=== PATIENT | female | born 1935 | race Caucasian/White ===

== ENCOUNTER → 2017-07-21 | Outpatient (CLI) | payer MEDICARE, MEDICAID ==
--- NOTE | 2017-07-21 11:38 | WOMENS IMAGING REPORT ---
Danny EXAM DESCRIPTION: BILAT SCREENING MAMMO W/CAD COMPLETED DATE/TIME: 07/21/2017 10:49 am REASON FOR STUDY: ROUTINE SCREENING; Z12.31 Z12.31 ENCNTR SCREEN MAMMOGRAM FOR MALIGNANT NEOPLASM O F ENDY COMPARISON: 2008 to 2015 TECHNIQUE: Standard craniocaudal and mediolateral oblique views of each breast recorded using App[employer] l acquisition. LIMITATIONS: None. FINDINGS: No masses, calcifications or architectural distortion. No areas of suspicion. Read with the assistance of CAD. .[facility] - R2 Cenova Version 1.3 .[facility] - R2 Cenova Version 1.3 .[facility] - R2 Cenova Version 2.4 .[facility] - R2 Cenova Version 2.4 .[facility] - R2 Legal Financial Specialist Version 9.2 IMPRESSION: NORMAL MAMMOGRAM. BIRADS 1. BREAST DENSITY: c. The breasts are heterogeneously dense, which may obscure small masses. BIRAD: 1 NEGATIVE RECOMMENDATION: ROUTINE SCREENING COMMENT: The patient has been notified of the results by letter per SA requirements. Additional no tification policies are in place for contacting patient with suspicious or incomplete findings. Quality ID #225: The [employer] recommends an annual screening mammogram for women aged 40 years or over. This facility utilizes a reminder system to ensure that all patients receive reminder letters, and/or direct phone calls for appointments. This includes reminders for routine scr eening mammograms, diagnostic mammograms, or other Breast Imaging Interventions when appropriate. Th is patient will be placed in the appropriate reminder system. The [employer] (ACR) has developed recommendations for screening MRI of the breast s in certain patient populations, to be used in conjunction with mammography. Breast MRI surveillanc e may be appropriate for women with more than 20% lifetime risk of developing breast cancer as deter mined by genetic testing, significant family history of the disease, or history of mantle radiation f or Hodgkins Disease. ACR Practice Guidelines 2008. TECHNICAL DOCUMENTATION: FINDING NUMBER: (1) ASSESSMENT: (1) JOB ID: [id number] [employer]- All Rights Reserved
== END ==
LOC: WI 10:27
PROVIDERS: ATTEND Physician Assistant
DX: Z12.31 Encounter for screening mammogram for malignant neoplasm of breast (principal)
CPT/HCPCS: 77067; G0202

== ENCOUNTER 2017-08-22 14:07 | Emergency (ER) | payer MEDICARE, MEDICAID ==
[2017-08-22 19:12] LABS: ABSOLUTE BASOPHILS # (AUTO) 0.1 10^3/uL (0.0-0.2); ABSOLUTE EOSINOPHILS # (AUTO) 0.2 10^3/uL (0.0-0.6); ABSOLUTE LYMPHOCYTES (AUTO) 1.7 10^3/uL (0.5-4.7); ABSOLUTE MONOCYTES (AUTO) 0.5 10^3/uL (0.1-1.4); ABSOLUTE NEUT (AUTO) 4.7 10^3/uL (1.7-8.2); BASOPHILS % (AUTO) 0.8 % (0-2); EOSINOPHILS % (AUTO) 2.5 % (0-6); HEMATOCRIT 41.5 % (36.0-47.0); HEMOGLOBIN 14.2 g/dL (12.0-15.5); HGB HCT DIFFERENCE 1.1; LYMPHOCYTES % (AUTO) 24.1 % (13-45); MEAN CORPUSCULAR HEMOGLOBIN 30.6 pg (27.0-33.4); MEAN CORPUSCULAR HGB CONC 34.2 g/dL (32.0-36.0); MEAN CORPUSCULAR VOLUME 89 fl (80-97); MONOCYTES % (AUTO) 6.9 % (3-13); RED BLOOD COUNT 4.65 10^6/uL (3.72-5.28); RED CELL DISTRIBUTION WIDTH 13.2 % (11.5-14.0); SEGMENTED NEUTROPHILS % (AUTO) 65.7 % (42-78); WHITE BLOOD COUNT 7.1 10^3/uL (4.0-10.5)
[2017-08-22 19:33] LABS: ALANINE AMINOTRANSFERASE 33 U/L (9-52); ALBUMIN 4.6 g/dL (3.5-5.0); ALKALINE PHOSPHATASE 51 U/L (38-126); ANION GAP 14 (5-19); ASPARTATE AMINO TRANSFERASE 25 U/L (14-36); BILIRUBIN,DIRECT 0.4 mg/dL (0.0-0.4); BILIRUBIN,TOTAL 0.7 mg/dL (0.2-1.3); BLOOD UREA NITROGEN 30 mg/dL (7-20); CALCIUM 10.5 mg/dL (8.4-10.2); CARBON DIOXIDE 27 mmol/L (22-30); CHLORIDE 103 mmol/L (98-107); CREATININE RESULT 0.91 mg/dL (0.52-1.25); GLUCOSE 88 mg/dL (75-110); POTASSIUM 4.1 mmol/L (3.6-5.0); SODIUM 144.3 mmol/L (137-145); TOTAL PROTEIN 7.7 g/dL (6.3-8.2)
--- NOTE | 2017-08-22 19:43 | ER Document Report ---
ED Medical Screen (RME) - General Mode of Arrival: Ambulatory Information source: Patient TRAVEL OUTSIDE OF THE [place] IN LAST 30 DAYS: No <CRISTEL MESSINA - Last Filed: 08/22/17 19:43> <CHERY CHRISTENSEN - Last Filed: 08/22/17 21:10> - General Chief Complaint: Dizziness Stated Complaint: DIZZINESS,NECK PAIN Time Seen by Provider: 08/22/17 18:03 Notes: Patient reports 2 days of dizziness and lightheadedness with near syncopal episodes. Patient states "everything goes black" but she does not believe she has fully passed out. Patient states this usually happens when going from sitting to standing. (CRISTEL MESSINA) - Related Data Allergies/Adverse Reactions: No Known Allergies Allergy (Verified 08/22/17 15:02) Past Medical History - General Information source: [facility] Records - Social History Chew tobacco use (# tins/day): No Frequency of alcohol use: None Drug Abuse: None - Past Medical History Cardiac Medical History: Reports: Hx Hypercholesterolemia, Hx Hypertension Renal/ Medical History: Denies: Hx Peritoneal Dialysis Surgical Hx: Negative - Immunizations Hx Diphtheria, Pertussis, Tetanus Vaccination: Yes History of Influenza Vaccine for 08/2017 - 01/2018 Season: No <CRISTEL MESSINA - Last Filed: 08/22/17 19:43> Review of Systems - Review of Systems Cardiovascular: See HPI, Dizziness <CRISTEL MESSINA - Last Filed: 08/22/17 19:43> Physical Exam <CRISTEL MESSINA - Last Filed: 08/22/17 19:43> <CHERY CHRISTENSEN - Last Filed: 08/22/17 21:10> - Vital signs Vitals: Temp Pulse Resp BP Pulse Ox 97.6 F 50 L 16 135/51 H 98 08/22/17 15:00 08/22/17 15:00 08/22/17 15:00 08/22/17 15:00 08/22/17 15:00 - Notes Notes: Physical Exam: General: Alert, appears well. HEENT: Normocephalic. Atraumatic. PERRLA. Extraocular movements intact. Oropharynx clear. Neck: Supple. Respiratory: No respiratory distress. Abdominal: Normal Inspection. No distension. Extremities: Moves all four extremities. Neurological: Normal cognition. AAOx4. Normal speech. Psychological: Normal affect. Normal Mood. Skin: Warm. Dry. Normal color. (CRISTEL MESSINA) Course - Laboratory Result Diagrams: 08/22/17 18:49 08/22/17 18:49 <CRISTEL MESSINA - Last Filed: 08/22/17 19:43> - Laboratory Result Diagrams: 08/22/17 18:49 08/22/17 18:49 <CHERY CHRISTENSEN - Last Filed: 08/22/17 21:10> - Re-evaluation Re-evalutation: 08/22/17 21:10 I have greeted this patient and performed a rapid initial assessment. A comprehensive evaluation will be performed by another physician within the emergency department, including review of any tests I may have ordered. ( CHERY CHRISTENSEN) - Vital Signs Vital signs: Temp Pulse Resp BP Pulse Ox 98.2 F 63 16 173/68 H 98 08/22/17 18:16 08/22/17 18:16 08/22/17 18:16 08/22/17 18:16 08/22/17 18:16 - Laboratory Laboratory results interpreted by me: 08/22/17 18:49 BUN 30 H Est GFR (Non-Af Amer) 59 L Calcium 10.5 H Scribe Documentation - Scribe Written by Mehdi:: Mehdi Urrutia, 08/22/2017 194 acting as scribe for :: Loretta <CRISTEL MESSINA - Last Filed: 08/22/17 19:43>
[2017-08-22 19:46] LABS: APPEARANCE,URINE SLIGHTLY-CLOUDY; BILIRUBIN,URINE NEGATIVE (NEGATIVE); GLUCOSE, URINE NEGATIVE (NEGATIVE); KETONES,URINE NEGATIVE (NEGATIVE); LEUKOCYTE ESTERASE,URINE NEGATIVE (NEGATIVE); NITRITE,URINE NEGATIVE (NEGATIVE); PROTEIN,URINE NEGATIVE (NEGATIVE); URINE SPECIFIC GRAVITY 1.013; UROBILINOGEN,URINE NEGATIVE mg/dL (<2.0)
--- NOTE | 2017-08-22 21:43 | ER Document Report ---
ED General - General Chief Complaint: Dizziness Stated Complaint: DIZZINESS,NECK PAIN Time Seen by Provider: 08/22/17 18:03 Mode of Arrival: Ambulatory Notes: Patient is an 82-year-old female who presents with episodic lightheadedness that has been ongoing for the past 2 days. Patient states that today shortly after she woke up at that time the couch began to feel lightheaded like she was about to pass out. Symptoms lasted for approximately 10-20 minutes and then did spontaneously resolve. Nothing seemed to trigger the episode and they did resolve on their own. She denies any associated chest pain, shortness of breath , palpitations, nausea, vomiting, focal weakness or numbness, headache, neck pain or confusion. She has not had any recent falls or trauma. She states that she has had similar symptoms throughout the day yesterday and wanted to be evaluated. She has not seen her primary care doctor regarding today's concerns. She has no history of similar symptoms in the past. She denies any symptoms at the time of my assessment. TRAVEL OUTSIDE OF THE [place] IN LAST 30 DAYS: No - Related Data Allergies/Adverse Reactions: No Known Allergies Allergy (Verified 08/22/17 15:02) Past Medical History - General Information source: Patient, [facility] Records - Social History Smoking Status: Never Smoker Chew tobacco use (# tins/day): No Frequency of alcohol use: None Drug Abuse: None Lives with: Family Family History: Reviewed & Not Pertinent Patient has suicidal ideation: No Patient has homicidal ideation: No - Past Medical History Cardiac Medical History: Reports: Hx Hypercholesterolemia, Hx Hypertension Renal/ Medical History: Denies: Hx Peritoneal Dialysis Surgical Hx: Negative - Immunizations Hx Diphtheria, Pertussis, Tetanus Vaccination: Yes Review of Systems - Review of Systems Notes: Constitutional: Negative for fever. HENT: Negative for sore throat. Eyes: Negative for visual changes. Cardiovascular: Negative for chest pain. Respiratory: Negative for shortness of breath. Gastrointestinal: Negative for abdominal pain, vomiting or diarrhea. Genitourinary: Negative for dysuria. Musculoskeletal: Negative for back pain. Skin: Negative for rash. Neurological: Negative for headaches, weakness or numbness. 10 point ROS negative except as marked above and in HPI. Physical Exam - Vital signs Vitals: Temp Pulse Resp BP Pulse Ox 97.6 F 50 L 16 135/51 H 98 08/22/17 15:00 08/22/17 15:00 08/22/17 15:00 08/22/17 15:00 08/22/17 15:00 Interpretation: Bradycardic Notes: PHYSICAL EXAMINATION: GENERAL: Well-appearing, well-nourished and in no acute distress. HEAD: Atraumatic, normocephalic. EYES: Pupils equal round and reactive to light, extraocular movements intact, sclera anicteric, conjunctiva are normal. ENT: nares patent, oropharynx clear without exudates. Moist mucous membranes. NECK: Normal range of motion, supple without lymphadenopathy LUNGS: Breath sounds clear to auscultation bilaterally and equal. No wheezes rales or rhonchi. HEART: Regular rate and rhythm without murmurs ABDOMEN: Soft, nontender, normoactive bowel sounds. No guarding, no rebound. No masses appreciated. EXTREMITIES: Normal range of motion, no pitting or edema. No cyanosis. NEUROLOGICAL: Face symmetric. Tongue protrudes midline. Extraocular motions intact. Pupils are 2 mm and equally reactive. Normal speech, normal gait. 5 out of 5 strength in both the distal and proximal upper and lower extremities bilaterally. Sensation is grossly intact throughout. Finger to nose testing normal. Pronator drift normal. PSYCH: Normal mood, normal affect. SKIN: Warm, Dry, normal turgor, no rashes or lesions noted. Course - Re-evaluation Re-evalutation: 08/22/17 21:42 Presentation of lightheadedness/ near syncope of unclear etiology. Patient normotensive, alert, without focal neurologic deficits at time of arrival. Denies episode was during exertion. No preceding symptoms of palpitations, chest pain, or shortness of breath. Patient asymptomatic at time of arrival. EKG is without evidence of HCOM, right heart strain, ST changes to suggest ischemia, prolong QTc, delta wave, epsilon wave, or Brugada syndrome. Patient denies any family history of sudden cardiac , personal history of of structural heart disease. Patient denies any symptoms to suggest an acute PE, VA , TAD, SAH, seizure, or acute GI bleed as the etiology of their syncope today. On exam, no murmurs to suggest critical aortic stenosis as possible etiology. Labs all unremarkable. Based on overall clinical history, exam findings, vitals , and patients appearance, I feel it is safe for patient to be discharged home at this time with close outpatient follow-up and strict return precautions. Patient is in agreement with this plan, has verbalized indications for return to ED, and questions have been answered. - Vital Signs Vital signs: Temp Pulse Resp BP Pulse Ox 98.1 F 63 17 130/62 H 99 08/22/17 22:03 08/22/17 22:03 08/22/17 22:03 08/22/17 22:03 08/22/17 22:03 - Laboratory Result Diagrams: 08/22/17 18:49 08/22/17 18:49 Laboratory results interpreted by me: 08/22/17 18:49 BUN 30 H Est GFR (Non-Af Amer) 59 L Calcium 10.5 H - EKG Interpretation by Me Additional EKG results interpreted by me: 08/22/17 21:44 Sinus bradycardia. Rate 51. No ST elevations or depressions. QTC is 429. No prior for comparison Discharge - Discharge Clinical Impression: Near syncope, Lightheadedness Condition: Good Disposition: HOME, SELF-CARE Additional Instructions: You were seen today after an episode of almost passing out. Your EKG here is normal. At this time, we do not feel that your episode of lightheadedness was from any life-threatening cause. Please drink plenty of fluids over the next several days. Return to emergency department if you have any further episodes of syncope, headache, weakness, numbness, chest pain, or shortness of breath. Please follow up closely with your primary care physician and cardiology at your earliest ability for consideration of an echocardiogram and monitoring of your heart rate. Referrals: DASH PIÑA MD [ACTIVE STAFF] - Follow up in 3-5 days
[2017-08-22 22:04] VITALS: BP 130/62
--- NOTE | 2017-08-23 07:50 | EKG REPORT ---
SEVERITY:- ABNORMAL ECG - SINUS RHYTHM LEFT ANTERIOR FASCICULAR BLOCK : Confirmed by: Chriss Pizano MD 23-Aug-2017 07:49:00
== END 2017-08-22 22:02 | disposition home or self-care (01) ==
LOC: ER 14:07
DX: R42 Dizziness and giddiness (principal); M54.2 Cervicalgia; R55 Syncope and collapse; E78.00 Pure hypercholesterolemia, unspecified; I10 Essential (primary) hypertension
CPT/HCPCS: 36415; 80053; 81001; 84484; 85025; 93005; 93010; 99284

== ENCOUNTER → 2018-08-27 | Outpatient (CLI) | payer MEDICARE, MEDICAID ==
--- NOTE | 2018-08-27 10:44 | WOMENS IMAGING REPORT ---
EXAM DESCRIPTION: BILAT SCREENING MAMMO W/CAD COMPLETED DATE/TIME: 08/27/2018 10:15 am REASON FOR STUDY: ROUTINE BILATERAL SCREENING;Z12.31 Z12.31 ENCNTR SCREEN MAMMOGRAM FOR MALIGNANT N EOPLASM OF ENDY COMPARISON: [id number] TECHNIQUE: Standard craniocaudal and mediolateral oblique views of each breast recorded using Project 10Ka l acquisition. LIMITATIONS: None. FINDINGS: No masses, calcifications or architectural distortion. No areas of suspicion. Read with the assistance of CAD. .[facility] - R2 Cenova Version 1.3 .[facility] Imaging - R2 Cenova Version 1.3 .[facility] - R2 Cenova Version 2.4 .[facility] [place] R2 Cenova Version 2.4 .[facility] - R2 Tread Tuber Machine Operator Version 9.2 IMPRESSION: NORMAL MAMMOGRAM. BIRADS 1. BREAST DENSITY: c. The breasts are heterogeneously dense, which may obscure small masses. BIRAD: 1 NEGATIVE RECOMMENDATION: ROUTINE SCREENING COMMENT: The patient has been notified of the results by letter per SA requirements. Additional no tification policies are in place for contacting patient with suspicious or incomplete findings. Quality ID #225: The [employer] recommends an annual screening mammogram for women aged 40 years or over. This facility utilizes a reminder system to ensure that all patients receive reminder letters, and/or direct phone calls for appointments. This includes reminders for routine scr eening mammograms, diagnostic mammograms, or other Breast Imaging Interventions when appropriate. Th is patient will be placed in the appropriate reminder system. The [employer] (ACR) has developed recommendations for screening MRI of the breast s in certain patient populations, to be used in conjunction with mammography. Breast MRI surveillanc e may be appropriate for women with more than 20% lifetime risk of developing breast cancer as deter mined by genetic testing, significant family history of the disease, or history of mantle radiation f or Hodgkins Disease. ACR Practice Guidelines 2008. TECHNICAL DOCUMENTATION: FINDING NUMBER: (1) ASSESSMENT: (1) JOB ID: [id number] [employer]- All Rights Reserved Reading location - IP/workstation name: [facility]
== END ==
LOC: WI 09:50
PROVIDERS: ATTEND Registered Nurse
DX: Z12.31 Encounter for screening mammogram for malignant neoplasm of breast (principal)
CPT/HCPCS: 77067

== ENCOUNTER → 2018-09-25 | Outpatient (CLI) | payer MEDICARE, MEDICAID ==
--- NOTE | 2018-09-25 12:39 | RADIOLOGY REPORT (SQ) ---
EXAM DESCRIPTION: [facility] DUPLEX ART/ANGELO FLOW COMPLETED DATE/TIME: 09/25/2018 11:47 am REASON FOR STUDY: HTN (I10) I10 ESSENTIAL (PRIMARY) HYPERTENSION COMPARISON: None. TECHNIQUE: Realtime and static grayscale images acquired. Selected color Doppler, velocities and spe ctral images recorded. LIMITATIONS: Renal artery origins off the aorta were difficult to visualize today FINDINGS: RIGHT KIDNEY: RENAL ARTERY VELOCITIES: At the hilum, 76 cm/sec. Segmental artery velocity 54 cm/sec. RENAL VEIN: Color doppler flow present, patent. VELOCITY RATIO: 1.1. Normal waveforms. KIDNEY: Normal size, 9 cm in length 1 cm cyst right upper pole kidney. LEFT KIDNEY: RENAL ARTERY VELOCITIES: At the hilum, 63 cm/sec. Segmental artery velocity 59 cm/sec. RENAL VEIN: Color doppler flow present, patent. VELOCITY RATIO: 1.1. Normal waveforms. KIDNEY: Normal size, 9.8 cm in length No significant pathology. BLADDER: Decompressed, not well seen OTHER: No other significant finding. IMPRESSION: NO DOPPLER EVIDENCE OF HEMODYNAMICALLY SIGNIFICANT RENAL ARTERY STENOSIS. COMMENT: NORMAL RENAL ARTERY/AORTA VELOCITY RATIO IS LESS THAN OR EQUAL TO 3.5. TECHNICAL DOCUMENTATION: JOB ID: [id number] [employer]- All Rights Reserved Reading location - IP/workstation name: [facility]
== END ==
LOC: RAD 09:31
PROVIDERS: ATTEND Registered Nurse
DX: I10 Essential (primary) hypertension (principal)
CPT/HCPCS: 93976

== ENCOUNTER 2018-11-08 02:17 | Inpatient (IN) | payer MEDICARE, MEDICAID ==
--- NOTE | 2018-11-08 03:03 | ER Document Report ---
ED General - General Chief Complaint: Blood Pressure Problem Stated Complaint: BLOOD PRESSURE ISSUE Time Seen by Provider: 11/08/18 02:48 TRAVEL OUTSIDE OF THE [place].S. IN LAST 30 DAYS: No - HPI Notes: Patient is a 83-year-old female that presents to the emergency department for chief complaint of hypertension. Patient states that over the last few weeks she has had a few episodes where her blood pressure gets very high. Today she woke up from sleep to go to the restroom and shortly after lying down she started to have palpitations. Her daughter states that her face appeared very red and she was shaking. Patient symptoms lasted for 30-40 minutes and then completely resolved. EMS was called to the house during this episode and her blood pressure was 198/96 as reported by her daughter. Patient currently states she is asymptomatic and feels back to normal. Her blood pressure now is stable. She does take 3 medications at home for blood pressure and has been compliant with these. Patient's daughter states that she was seen a week ago with similar symptoms at [place] and was discharged home without workup. Patient denies any associated diaphoresis, chest pain, shortness of breath, nausea, vomiting, abdominal pain. She states she is currently on antibiotic for urinary tract infection, she states her dysuria has almost completely resolved. She denies any fevers. Past Medical History: Hypertension Past Surgical History: Reviewed in chart Social History: Denies drugs alcohol and tobacco Family History: Reviewed and noncontributory for presenting illness Allergies: Reviewed, see documented allergy list. REVIEW OF SYSTEMS: CONSTITUTIONAL : No fever No chills No diaphoresis No recent illness EENT: No vision changes No congestion No sore throat CARDIOVASCULAR: No chest pain palpitations RESPIRATORY: No shortness of breath No cough No difficulty breathing GASTROINTESTINAL: No abdominal pain No nausea No vomiting No diarrhea GENITOURINARY: dysuria No hematuria No difficulty urinating MUSCULOSKELETAL: No back pain No leg pain No arm pain SKIN: No rashes No lesions LYMPHATIC: No swollen, enlarged glands. NEUROLOGICAL: No lightheadedness No headache No weakness No paresthesias Shakiness PSYCHIATRIC: No anxiety No depression PHYSICAL EXAMINATION: Vital signs reviewed, nursing noted reviewed. GENERAL: Well-appearing, well-nourished and in no acute distress. HEAD: Atraumatic, normocephalic. EYES: Eyes appear normal, extraocular movements intact, sclera anicteric, conjunctiva are normal. ENT: nares patent, oropharynx clear without exudates. Moist mucous membranes. NECK: Normal range of motion, supple without lymphadenopathy LUNGS: Breath sounds clear to auscultation bilaterally and equal. No wheezes r ales or rhonchi. HEART: Regular rate and rhythm without murmurs ABDOMEN: Soft, nontender, normoactive bowel sounds. No rebound, guarding, or rigidity. No masses appreciated. EXTREMITIES: Nontender, good range of motion, no pitting or edema. NEUROLOGICAL: No focal neurological deficits. Moves all extremities spontaneously Motor and sensory grossly intact on exam. PSYCH: Normal mood, normal affect. SKIN: Warm, Dry, normal turgor, no rashes or lesions noted on exposed skin - Related Data Allergies/Adverse Reactions: No Known Allergies Allergy (Verified 08/22/17 15:02) Past Medical History - Social History Smoking Status: Never Smoker Family History: Reviewed & Not Pertinent - Past Medical History Cardiac Medical History: Reports: Hx Hypercholesterolemia, Hx Hypertension Renal/ Medical History: Denies: Hx Peritoneal Dialysis - Immunizations Hx Diphtheria, Pertussis, Tetanus Vaccination: Yes Physical Exam - Vital signs Vitals: Temp Pulse Resp BP Pulse Ox 98.1 F 90 16 152/80 H 97 11/08/18 02:31 11/08/18 02:31 11/08/18 02:31 11/08/18 02:31 11/08/18 02:31 Course - Re-evaluation Re-evalutation: 11/08/18 03:02 Vitals reviewed. Nursing notes reviewed. Patient is resting comfortably and asymptomatic. Her blood pressure is 152/80 and she is not requiring blood pressure medication. Patient has now had multiple visits to the emergency room with complaints of hypertension. She does see Dr. Bradford who expressed displeasure when patient's daughter told her she did not receive a workup the last time she was in the ER. 11/08/18 04:58 Patient's EKG shows no acute ischemic changes. CBC is unremarkable. She has no renal failure or electrolyte derangements. Patient does have a slightly elevated troponin at 0.037. The symptoms she was having earlier in the evening may be atypical ACS. She has not had any symptoms while in the emergency room. Patient was given aspirin and will be admitted to the hospital for telemetry monitoring as well as trending of her troponins. Case discussed with admitting physician Dr. Terrazas. She is stable at time of admission. Laboratory 11/08/18 11/08/18 11/08/18 04:08 04:08 04:08 WBC 8.0 RBC 4.60 Hgb 13.7 Hct 40.0 MCV 87 MCH 29.9 MCHC 34.4 RDW 14.0 Plt Count 273 Seg Neutrophils % 79.8 H Lymphocytes % 11.6 L Monocytes % 5.8 Eosinophils % 2.3 Basophils % 0.5 Absolute Neutrophils 6.4 Absolute Lymphocytes 0.9 Absolute Monocytes 0.5 Absolute Eosinophils 0.2 Absolute Basophils 0.0 Sodium 142.2 Potassium 3.8 Chloride 104 Carbon Dioxide 28 Anion Gap 10 BUN 14 Creatinine 0.77 Est GFR ( Amer) > 60 Est GFR (Non-Af Amer) > 60 Glucose 107 Calcium 10.0 Troponin I 0.037 - Vital Signs Vital signs: Temp Pulse Resp BP Pulse Ox 98.1 F 90 16 152/80 H 97 11/08/18 02:31 11/08/18 02:31 11/08/18 02:31 11/08/18 02:31 11/08/18 02:31 - Laboratory Result Diagrams: 11/08/18 04:08 11/08/18 04:08 Laboratory results interpreted by me: 11/08/18 04:08 Seg Neutrophils % 79.8 H Lymphocytes % 11.6 L - EKG Interpretation by Me Additional EKG results interpreted by me: 11/08/18 03:35 Interpreted by myself Normal sinus rhythm, rate 94, borderline left axis, no ectopy, no ST elevation, LAFB Discharge - Discharge Clinical Impression: Elevated troponin Hypertension Qualifiers: Hypertension type: unspecified Qualified Code(s): I10 - Essential (primary) hypertension Condition: Stable Disposition: ADMITTED OBSERVATION Admitting Provider: Hospitalist Unit Admitted: Telemetry Additional Instructions: Please return to the emergency department if you have any worsening, or concern of your symptoms. Please return to the emergency department if you develop chest pain, difficulty breathing, severe abdominal pain, or ongoing vomiting. Please follow-up with your primary care physician in 2-3 days and any other recommended physicians. If prescribed, take all medications as directed. If you have any questions or concerns do not hesitate to return the emergency department for evaluation.
[2018-11-08 04:34] LABS: ANION GAP 10 (5-19); BLOOD UREA NITROGEN 14 mg/dL (7-20); CARBON DIOXIDE 28 mmol/L (22-30); CHLORIDE 104 mmol/L (98-107); GLUCOSE 107 mg/dL (75-110); POTASSIUM 3.8 mmol/L (3.6-5.0); SODIUM 142.2 mmol/L (137-145)
[2018-11-08 04:37] LABS: ABSOLUTE EOSINOPHILS # (AUTO) 0.2 10^3/uL (0.0-0.6); ABSOLUTE LYMPHOCYTES (AUTO) 0.9 10^3/uL (0.5-4.7); ABSOLUTE MONOCYTES (AUTO) 0.5 10^3/uL (0.1-1.4); ABSOLUTE NEUT (AUTO) 6.4 10^3/uL (1.7-8.2); BASOPHILS % (AUTO) 0.5 % (0-2); EOSINOPHILS % (AUTO) 2.3 % (0-6); HEMOGLOBIN 13.7 g/dL (12.0-15.5); LYMPHOCYTES % (AUTO) 11.6 % (13-45); MEAN CORPUSCULAR HEMOGLOBIN 29.9 pg (27.0-33.4); MEAN CORPUSCULAR HGB CONC 34.4 g/dL (32.0-36.0); MEAN CORPUSCULAR VOLUME 87 fl (80-97); MONOCYTES % (AUTO) 5.8 % (3-13); PLATELET COUNT 273 10^3/uL (150-450); SEGMENTED NEUTROPHILS % (AUTO) 79.8 % (42-78); TOTAL CELLS COUNTED % (AUTO) 100 %
[2018-11-08] MEDS ORDERED: ASPIRIN 81 MG TABLET, CHEWABLE PO ONE (04:50)
[2018-11-08] MEDS ORDERED: MAG HYDROX/AL HYDROX/SIMETH SUSP 30 ML UDCUP PO PRN (05:04)
[2018-11-08] MEDS ORDERED: ONDANSETRON 4 MG TAB.RAPDIS PO PRN (05:04)
[2018-11-08] MEDS ORDERED: MAGNESIUM HYDROXIDE SUSP 30 ML UDCUP PO PRN (05:04)
[2018-11-08] MEDS ORDERED: ACETAMINOPHEN 650 MG SUPP.RECT PR PRN (05:08)
[2018-11-08] MEDS ORDERED: MORPHINE SULFATE 10 MG/ML INJ IV PRN ×3 (05:08)
[2018-11-08] MEDS: HEPARIN SOD (PORCINE) 5,000 UNIT/ML 1 ML SYRINGE SUBCUT SCH ×3 (05:23→21:20)
--- NOTE | 2018-11-08 05:39 | PDOC H&P ---
History of Present Illness Admission Date/PCP: KAILEY NIEVES NP Patient complains of: High blood pressure History of Present Illness: TREVOR NIEVES is a 83 year old female who presented to the emergency room with a 3-week history of episodic hypertension. She admits that on numerous occasions over the last 3 weeks her blood pressure has become extremely high (198/96) at home when she measures it or when her daughter measures it. The elevated blood pressures are generally accompanied by palpitations, flushing and tremor, lasting for 30-60 minutes and then resolving spontaneously. She admits several prior similar episodes and has not identified any aggravating or ameliorating factors for her hypertension, despite the fact that she takes 3 an tihypertensive agents on a regular basis. In the emergency room she was found to have a mildly elevated serum troponin of 0.037 and poorly controlled hypertension. With these findings the patient was placed in observation status at the request of the emergency room physician for better control of her hypertension and and further delineation of her elevated serum troponin prior to discharge. Past Medical History Cardiac Medical History: Reports: Hyperlipidema, Hypertension Denies: Coronary Artery Disease, DVT, Myocardial Infarction, Pulmonary Embolism Pulmonary Medical History: Denies: Asthma, Chronic Obstructive Pulmonary Disease (COPD), Respiratory Failure EENT Medical History: Reports: None Neurological Medical History: Denies: Multiple Sclerosis, Seizures Endocrine Medical History: Denies: Diabetes Mellitus Type 1, Diabetes Mellitus Type 2, Hyperthyroidism, Hypothyroidism Renal/ Medical History: Denies: Chronic Kidney Disease, Nephrolithiasis Malignancy Medical History: Reports: None GI Medical History: Denies: Cirrhosis, Hepatitis Musculoskeltal Medical History: Denies: Fibromyalgia, Gout Skin Medical History: Denies: Eczema, Psoriasis Psychiatric Medical History: Denies: Alcohol Dependency, Substance Abuse, Tobacco Dependency Traumatic Medical History: Reports: None Hematology: Denies: Anemia, Bleeding Tendencies Infectious Medical History: Reports: None Social History Information Source: Patient Lives with: Alone Smoking Status: Never Smoker Frequency of Alcohol Use: None Hx Recreational Drug Use: No Drugs: None Hx Prescription Drug Abuse: No - Advance Directive Resuscitation Status: Full Code Surrogate healthcare decision maker:: Son: Brannon Family History Family History: Hypertension Parental Family History Reviewed: Yes Children Family History Reviewed: No Sibling(s) Family History Reviewed.: Yes Medication/Allergy Home Medications: Hydrocodone/Acetaminophen [[place] 5-325 Tablet] 1 each PO Q6 PRN #14 tablet 10/26/14 Allergies/Adverse Reactions: No Known Allergies Allergy (Verified 08/22/17 15:02) Review of Systems Constitutional: ABSENT: chills, fever(s) Eyes: ABSENT: visual disturbances, other - Ocular pain Ears: ABSENT: hearing changes, other - Ear pain Nose, Mouth, and Throat: ABSENT: mouth pain, sore throat Cardiovascular: ABSENT: chest pain, dyspnea on exertion, edema, orthropnea, palpitations Respiratory: ABSENT: cough, dyspnea Gastrointestinal: ABSENT: abdominal pain, constipation, diarrhea, nausea, vomiting Genitourinary: ABSENT: dysuria, hematuria Musculoskeletal: ABSENT: deformity, joint swelling Integumentary: ABSENT: diaphoresis, pruritus, rash Neurological: ABSENT: confusion, convulsions, memory loss, tremor(s) Psychiatric: ABSENT: anxiety, depression Endocrine: ABSENT: cold intolerance, heat intolerance Hematologic/Lymphatic: ABSENT: easy bleeding, easy bruising Physical Exam Vital Signs: Temp Pulse Resp BP Pulse Ox 98.1 F 90 16 152/80 H 97 11/08/18 02:31 11/08/18 02:31 11/08/18 02:31 11/08/18 02:31 11/08/18 02:31 Intake & Output 11/06/18 11/07/18 11/08/18 23:59 23:59 23:59 Weight 59.874 kg General appearance: PRESENT: no acute distress, cooperative Head exam: PRESENT: atraumatic, normocephalic Eye exam: PRESENT: conjunctiva pink. ABSENT: scleral icterus Ear exam: PRESENT: normal external ear exam. ABSENT: bleeding, drainage Mouth exam: PRESENT: dry mucosa, neck supple Neck exam: ABSENT: JVD, thyromegaly, tracheal deviation Respiratory exam: PRESENT: clear to auscultation morales, symmetrical, unlabored Cardiovascular exam: PRESENT: clicks, gallop, RRR, rubs Pulses: PRESENT: normal radial pulses, normal dorsalis pedis pul Vascular exam: PRESENT: normal capillary refill. ABSENT: pallor GI/Abdominal exam: PRESENT: normal bowel sounds, soft Rectal exam: PRESENT: deferred Extremities exam: ABSENT: joint swelling, pedal edema Musculoskeletal exam: ABSENT: deformity, dislocation Neurological exam: PRESENT: alert, oriented to person, oriented to place, oriented to time, oriented to situation Psychiatric exam: PRESENT: appropriate affect, normal mood Skin exam: PRESENT: dry, intact, warm. ABSENT: jaundice, rash, urticaria Results Laboratory Results: 11/08/18 04:08 11/08/18 04:08 11/08/18 11/08/18 04:08 04:08 WBC 8.0 RBC 4.60 Hgb 13.7 Hct 40.0 MCV 87 MCH 29.9 MCHC 34.4 RDW 14.0 Plt Count 273 Seg Neutrophils % 79.8 H Lymphocytes % 11.6 L Monocytes % 5.8 Eosinophils % 2.3 Basophils % 0.5 Absolute Neutrophils 6.4 Absolute Lymphocytes 0.9 Absolute Monocytes 0.5 Absolute Eosinophils 0.2 Absolute Basophils 0.0 Sodium 142.2 Potassium 3.8 Chloride 104 Carbon Dioxide 28 Anion Gap 10 BUN 14 Creatinine 0.77 Est GFR ( Amer) > 60 Est GFR (Non-Af Amer) > 60 Glucose 107 Calcium 10.0 11/08/18 04:08 Troponin I 0.037 Assessment & Plan - Diagnosis (1) Hypertension, uncontrolled Is this a current diagnosis for this admission?: Yes Plan: Patient is noted to have significant labile hypertension with a high normal to tachycardic heart rate and at least some degree of anxiety as components of her hypertensive episodes. She will be treated with a nonselective beta-wily initially and a low-dose of clonazepam can be added to the regimen if required to control anxiety not controlled well by beta-wily therapy. (2) Elevated troponin Is this a current diagnosis for this admission?: Yes Plan: Serial cardiac enzyme evaluations were performed to rule out or rule in acute myocardial injury or ischemia. (3) HLD (hyperlipidemia) Qualifiers: Hyperlipidemia type: unspecified Qualified Code(s): E78.5 - Hyperlipidemia, unspecified Is this a current diagnosis for this admission?: Yes Plan: Patient will be continued on her prehospitalization therapeutic regimen. A lipid profile may be obtained to evaluate efficacy of current therapy. - Time Time Spent: 30 to 50 Minutes Critical Time spent with patient: Less than 15 minutes Medications reviewed and adjusted accordingly: Yes Anticipated discharge: Home Within: within 24 hours - Inpatient Certification Based on my medical assessment, after consideration of the patient's co morbidities, presenting symptoms, or acuity I expect that the services needed warrant INPATIENT care.: No I certify that my determination is in accordance with my understanding of Medicare's requirements for reasonable and necessary INPATIENT services [42 CFR 412.3e].: No Medical Necessity: Need Close Monitoring Due to Risk of Patient Decompensation, Need For Continuous Telemetry Monitoring
[2018-11-08] MEDS ORDERED: CLONAZEPAM 1 MG TABLET PO PRN (05:43)
[2018-11-08] MEDS ORDERED: CARVEDILOL 12.5 MG TABLET PO ONE (06:00)
[2018-11-08 07:10] LABS: CHOLESTEROL 185.21 mg/dL (0-200); TRIGLYCERIDES 102 mg/dL (<150)
[2018-11-08 07:21] LABS: DIRECT LDL 115 mg/dL (<100)
[2018-11-08 07:23] LABS: CREATINE KINASE MB 1.97 ng/mL (<4.55); TROPONIN I 0.044 ng/mL
--- NOTE | 2018-11-08 08:53 | EKG REPORT ---
SEVERITY:- ABNORMAL ECG - SINUS RHYTHM PROBABLE LEFT ATRIAL ABNORMALITY LEFT ANTERIOR FASCICULAR BLOCK PROBABLE LEFT VENTRICULAR HYPERTROPHY : Confirmed by: Ketty Mariee 08-Nov-2018 08:51:57
[2018-11-08] MEDS ORDERED: (PENDING PHARMACY ID) (Nifedipine [Nifedipine Er] 60 MG) PO SCH (10:30)
[2018-11-08] MEDS ORDERED: (PENDING PHARMACY ID) (Calcium Carbonate/Vitamin D3 [Calcium 600 + Vit D 400 Tablet] 1 TAB PO SCH (10:30)
--- NOTE | 2018-11-08 10:35 | PDOC PROGRESS REPORT ---
Subjective Progress Note for:: 11/08/18 Subjective:: Admitted to observation overnight, just a few hours ago. Denies chest pain, no headache. No fever or chills, no palpitations. Reason For Visit: UNCONTROLLED HYPERTENSION Physical Exam Vital Signs: Temp Pulse Resp BP Pulse Ox 97.5 F 83 16 182/67 H 100 11/08/18 07:07 11/08/18 07:07 11/08/18 07:07 11/08/18 07:07 11/08/18 07:07 Intake & Output 11/07/18 11/08/18 11/09/18 06:59 06:59 06:59 Weight 59.874 kg 60.9 kg GENERAL: Well-developed, elderly female, no acute distress HEENT: Normocephalic/atraumatic NECK supple, no JVD CARDIOVASCULAR: RRR, normal S1-S2 LUNGS: CTA bilaterally ABDOMEN: Soft, NT, NL bowel sounds EXTREMITIES: No edema, clubbing, cyanosis NEUROLOGICAL: Alert, oriented x 3, nonfocal Results Laboratory Results: 11/08/18 04:08 11/08/18 04:08 11/08/18 11/08/18 11/08/18 04:08 04:08 06:10 WBC 8.0 RBC 4.60 Hgb 13.7 Hct 40.0 MCV 87 MCH 29.9 MCHC 34.4 RDW 14.0 Plt Count 273 Seg Neutrophils % 79.8 H Lymphocytes % 11.6 L Monocytes % 5.8 Eosinophils % 2.3 Basophils % 0.5 Absolute Neutrophils 6.4 Absolute Lymphocytes 0.9 Absolute Monocytes 0.5 Absolute Eosinophils 0.2 Absolute Basophils 0.0 Sodium 142.2 Potassium 3.8 Chloride 104 Carbon Dioxide 28 Anion Gap 10 BUN 14 Creatinine 0.77 Est GFR ( Amer) > 60 Est GFR (Non-Af Amer) > 60 Glucose 107 Calcium 10.0 Triglycerides 102 Cholesterol 185.21 LDL Cholesterol Direct 115 H VLDL Cholesterol 20.0 HDL Cholesterol 48 11/08/18 11/08/18 11/08/18 04:08 06:10 06:10 Creatine Kinase 61 CK-MB (CK-2) 1.97 Troponin I 0.037 0.044 Assessment & Plan - Diagnosis (1) Hypertension, uncontrolled Is this a current diagnosis for this admission?: Yes (2) Elevated troponin Is this a current diagnosis for this admission?: Yes (3) HLD (hyperlipidemia) Qualifiers: Hyperlipidemia type: unspecified Qualified Code(s): E78.5 - Hyperlipidemia, unspecified Is this a current diagnosis for this admission?: Yes - Plan Summary Plan Summary: Troponin is flat, no chest pain or other symptoms. Will continue to trend. Patient was started on carvedilol 25 mg twice daily. Will resume lisinopril and nifedipine as well. Hold clonidine as this can can cause rebound hypertension. Continue to monitor patient otherwise.
[2018-11-08] MEDS: CALCIUM CARBONATE 250 MG/VITAMIN D3 125 UNIT TABLET PO SCH (11:29)
[2018-11-08] MEDS: SULFAMETHOXAZOLE/TRIMETHOPRIM 800-160 MG TABLET PO SCH ×2 (11:30→17:43)
[2018-11-08] MEDS: DOCUSATE SODIUM 100 MG CAPSULE PO SCH ×2 (11:30→17:43)
[2018-11-08] MEDS: LISINOPRIL 10 MG TABLET PO SCH (11:30)
[2018-11-08] MEDS: FAMOTIDINE 20 MG TABLET PO SCH ×2 (11:30→21:21)
[2018-11-08] MEDS: NIFEDIPINE 30 MG TAB.ER.24 PO SCH (11:30)
[2018-11-08] MEDS: CHOLECALCIFEROL (D3) 400 UNIT TABLET PO SCH (11:31)
[2018-11-08] MEDS: CELECOXIB 200 MG CAPSULE PO SCH ×2 (11:31→21:21)
[2018-11-08] MEDS ORDERED: ASPIRIN 81 MG TABLET, ENT COATED PO SCH (12:00)
[2018-11-08 13:21] LABS: CREATINE KINASE MB 1.41 ng/mL (<4.55); TROPONIN I 0.019 ng/mL
[2018-11-08] MEDS: ACETAMINOPHEN 325 MG TABLET PO PRN ×2 (15:17→23:34)
[2018-11-08 18:35] LABS: CREATINE KINASE MB 1.22 ng/mL (<4.55); TROPONIN I 0.014 ng/mL
[2018-11-08] MEDS: CARVEDILOL 12.5 MG TABLET PO SCH (21:20)
[2018-11-08] MEDS: ONDANSETRON HCL INJ/PF 4 MG/2 ML SDV IV PRN (22:11)
[2018-11-09] MEDS: HEPARIN SOD (PORCINE) 5,000 UNIT/ML 1 ML SYRINGE SUBCUT SCH ×3 (06:18→21:18)
[2018-11-09] MEDS: ACETAMINOPHEN 325 MG TABLET PO PRN ×3 (07:00→23:33)
--- NOTE | 2018-11-09 08:20 | Physician Advisory Note ---
Physician Advisor ProgressNote .: Pursuant to the plan for [facility], I have reviewed the medical record for this patient. Physician Advisor Statement: Status: 83yo Medicare pt approp.ly brought in as Obs for uncontrolled HTN with elevated trop I. BPs responding to tx. - If felt stable for d/c today, no change in status needed. - If felt to need a 2nd MN of hospitalization for further eval/monitoring, please states reasons/clinical concerns, and may then change to Inpatient status. (?Concerns r.e. hypoxemia of 89% at 04:55 with fever to 101.4 at 23:13 and nausea/dry heaves with chills at 22:10, small trop I bump before dropping, ... - or may some of this be either error or not concerning?) Thanks! CK
[2018-11-09] MEDS: CALCIUM CARBONATE 250 MG/VITAMIN D3 125 UNIT TABLET PO SCH (09:16)
[2018-11-09] MEDS: DOCUSATE SODIUM 100 MG CAPSULE PO SCH ×2 (09:16→17:56)
[2018-11-09] MEDS: FAMOTIDINE 20 MG TABLET PO SCH ×2 (09:16→21:18)
[2018-11-09] MEDS: SULFAMETHOXAZOLE/TRIMETHOPRIM 800-160 MG TABLET PO SCH ×2 (09:16→17:56)
[2018-11-09] MEDS: CARVEDILOL 12.5 MG TABLET PO SCH ×2 (09:16→21:18)
[2018-11-09] MEDS: CHOLECALCIFEROL (D3) 400 UNIT TABLET PO SCH (09:16)
[2018-11-09] MEDS: NIFEDIPINE 30 MG TAB.ER.24 PO SCH (09:17)
[2018-11-09] MEDS: LISINOPRIL 10 MG TABLET PO SCH (09:17)
[2018-11-09] MEDS: CELECOXIB 200 MG CAPSULE PO SCH ×2 (09:17→21:14)
[2018-11-09] MEDS: ASPIRIN 81 MG TABLET, ENT COATED PO SCH (09:17)
--- NOTE | 2018-11-09 12:33 | PDOC PROGRESS REPORT ---
Subjective Progress Note for:: 11/09/18 Subjective:: Patient was admitted with uncontrolled hypertension and slightly elevated troponin. Clonidine has been discontinued and Coreg 25 mg twice daily added to her medication regimen. She is doing much better, blood pressure is better controlled. However, patient spiked a fever of 101.4 overnight. She was receiving Bactrim as outpatient and this was continued. Denies chest pain, no headache. Reports episode of cough, but no phlegm production reports feeling feverish, no chills. Still with some dysuria but actually improving, urinary frequency improved. Denies abdominal pain, nausea or vomiting. Reason For Visit: UNCONTROLLED HYPERTENSION Physical Exam Vital Signs: Temp Pulse Resp BP Pulse Ox 99.6 F 73 18 152/62 H 94 11/09/18 07:16 11/09/18 07:16 11/09/18 07:16 11/09/18 07:16 11/09/18 07:16 Intake & Output 11/08/18 11/09/18 11/10/18 06:59 06:59 06:59 Intake Total 630 60 Output Total 0 Balance 630 60 Weight 59.874 kg 63 kg GENERAL: Well-developed, elderly female, no acute distress HEENT: Normocephalic/atraumatic NECK supple, no JVD CARDIOVASCULAR: RRR, normal S1-S2 LUNGS: CTA bilaterally ABDOMEN: Soft, NT, NL bowel sounds EXTREMITIES: No edema, clubbing, cyanosis NEUROLOGICAL: Alert, oriented x 3, nonfocal Results Laboratory Results: 11/08/18 04:08 11/08/18 04:08 11/08/18 11/08/18 11/08/18 04:08 06:10 06:10 Creatine Kinase 61 CK-MB (CK-2) 1.97 Troponin I 0.037 0.044 11/08/18 11/08/18 11/08/18 12:36 12:36 18:04 Creatine Kinase 54 54 CK-MB (CK-2) 1.41 Troponin I 0.019 11/08/18 18:04 Creatine Kinase CK-MB (CK-2) 1.22 Troponin I 0.014 Assessment & Plan - Diagnosis (1) Hypertensive urgency Is this a current diagnosis for this admission?: Yes (2) UTI (urinary tract infection) Is this a current diagnosis for this admission?: Yes (3) Fever Is this a current diagnosis for this admission?: Yes (4) Elevated troponin Is this a current diagnosis for this admission?: Yes (5) HLD (hyperlipidemia) Qualifiers: Hyperlipidemia type: unspecified Qualified Code(s): E78.5 - Hyperlipidemia, unspecified Is this a current diagnosis for this admission?: Yes - Inpatient Certification Based on my medical assessment, after consideration of the patient's comorbidities, presenting symptoms, or acuity I expect that the services needed warrant INPATIENT care.: Yes I certify that my determination is in accordance with my understanding of Medicare's requirements for reasonable and necessary INPATIENT services [42 CFR 412.3e].: Yes Medical Necessity: Failure to Improve With Outpatient Therapy, Need Close Monitoring Due to Risk of Patient Decompensation, Risk of Complication if Not Cared For in Hospital, Risk of Diagnosis Which Will Require Inpatient Eval/Care/Monitoring - Plan Summary Plan Summary: Patient's blood pressure is improving. Troponin has normalized, suspect slight bump was secondary to uncontrolled blood pressure/hypertensive urgency. Encouraging is that she has no chest pain. We will continue to have patient off clonidine and continue Coreg. However, patient still not ready for discharge. She had fever of 101.4 overnight. This is concerning given that she is currently being treated for UTI. Will recheck CBC, check blood cultures and follow-up results for at least the next 24 hours, monitor for recurrent fever, recheck UA, check chest x-ray to rule out pneumonia. Hence, will change patient from observation status to inpatient, as there is risk for potential decompensation and of finding a diagnosis that may require inpatient evaluation and/or care. If patient is without recurrence of fever and blood cultures are returning negative, possible discharge home in a.m.
--- NOTE | 2018-11-09 13:08 | RADIOLOGY REPORT (SQ) ---
EXAM DESCRIPTION: CHEST 2 VIEWS COMPLETED DATE/TIME: 11/09/2018 12:46 pm REASON FOR STUDY: cough, fever COMPARISON: None. EXAM PARAMETERS: NUMBER OF VIEWS: two views TECHNIQUE: Digital Frontal and Lateral radiographic views of the chest acquired. RADIATION DOSE: NA LIMITATIONS: none FINDINGS: LUNGS AND PLEURA: No opacities, masses or pneumothorax. No pleural effusion. MEDIASTINUM AND HILAR STRUCTURES: Mild hilar prominence bilaterally. Cannot exclude some small calci fied nodes. HEART AND VASCULAR STRUCTURES: Heart normal size. No evidence for failure. BONES: No acute findings. HARDWARE: None in the chest. OTHER: No other significant finding. IMPRESSION: Cannot exclude some small calcified hilar nodes bilaterally. No acute cardiopulmonary f indings. TECHNICAL DOCUMENTATION: JOB ID: [id number] [employer]- All Rights Reserved Reading location - IP/workstation name: [email or web address]
[2018-11-09] MEDS: ONDANSETRON HCL INJ/PF 4 MG/2 ML SDV IV PRN (13:35)
[2018-11-09 13:43] LABS: ANION GAP 8 (5-19); BLOOD UREA NITROGEN 17 mg/dL (7-20); CALCIUM 9.5 mg/dL (8.4-10.2); CARBON DIOXIDE 25 mmol/L (22-30); CHLORIDE 105 mmol/L (98-107); GLUCOSE 95 mg/dL (75-110); POTASSIUM 4.6 mmol/L (3.6-5.0); SODIUM 137.7 mmol/L (137-145)
[2018-11-09 15:05] LABS: ABSOLUTE EOSINOPHILS # (AUTO) 0.3 10^3/uL (0.0-0.6); ABSOLUTE LYMPHOCYTES (AUTO) 0.7 10^3/uL (0.5-4.7); ABSOLUTE MONOCYTES (AUTO) 0.4 10^3/uL (0.1-1.4); ABSOLUTE NEUT (AUTO) 4.1 10^3/uL (1.7-8.2); BASOPHILS % (AUTO) 0.3 % (0-2); EOSINOPHILS % (AUTO) 5.7 % (0-6); HEMATOCRIT 36.2 % (36.0-47.0); HEMOGLOBIN 12.3 g/dL (12.0-15.5); LYMPHOCYTES % (AUTO) 12.8 % (13-45); MEAN CORPUSCULAR HEMOGLOBIN 29.8 pg (27.0-33.4); MEAN CORPUSCULAR VOLUME 88 fl (80-97); MONOCYTES % (AUTO) 7.2 % (3-13); PLATELET COUNT 207 10^3/uL (150-450); RED BLOOD COUNT 4.12 10^6/uL (3.72-5.28); TOTAL CELLS COUNTED % (AUTO) 100 %; WHITE BLOOD COUNT 5.6 10^3/uL (4.0-10.5)
[2018-11-09 18:49] LABS: APPEARANCE,URINE SLIGHTLY-CLOUDY; BILIRUBIN,URINE NEGATIVE (NEGATIVE); COLOR,URINE YELLOW; GLUCOSE, URINE NEGATIVE (NEGATIVE); KETONES,URINE NEGATIVE (NEGATIVE); LEUKOCYTE ESTERASE,URINE NEGATIVE (NEGATIVE); NITRITE,URINE NEGATIVE (NEGATIVE); PROTEIN,URINE NEGATIVE (NEGATIVE); URINE SPECIFIC GRAVITY 1.024; UROBILINOGEN,URINE NEGATIVE mg/dL (<2.0)
[2018-11-10] MEDS: HEPARIN SOD (PORCINE) 5,000 UNIT/ML 1 ML SYRINGE SUBCUT SCH ×3 (05:34→22:13)
[2018-11-10 08:46] LABS: HEMATOCRIT 37.3 % (36.0-47.0); HEMOGLOBIN 12.5 g/dL (12.0-15.5); MEAN CORPUSCULAR HEMOGLOBIN 29.4 pg (27.0-33.4); MEAN CORPUSCULAR HGB CONC 33.5 g/dL (32.0-36.0); MEAN CORPUSCULAR VOLUME 88 fl (80-97); PLATELET COUNT 172 10^3/uL (150-450); RED BLOOD COUNT 4.25 10^6/uL (3.72-5.28); RED CELL DISTRIBUTION WIDTH 14.2 % (11.5-14.0); WHITE BLOOD COUNT 4.2 10^3/uL (4.0-10.5)
[2018-11-10 09:04] LABS: ALANINE AMINOTRANSFERASE 21 U/L (9-52); ALBUMIN 3.7 g/dL (3.5-5.0); ALKALINE PHOSPHATASE 46 U/L (38-126); ANION GAP 8 (5-19); ASPARTATE AMINO TRANSFERASE 27 U/L (14-36); BILIRUBIN,DIRECT 0.2 mg/dL (0.0-0.4); BILIRUBIN,TOTAL 0.4 mg/dL (0.2-1.3); BLOOD UREA NITROGEN 16 mg/dL (7-20); CARBON DIOXIDE 27 mmol/L (22-30); CHLORIDE 103 mmol/L (98-107); GLUCOSE 94 mg/dL (75-110); SODIUM 137.7 mmol/L (137-145); TOTAL PROTEIN 6.5 g/dL (6.3-8.2)
[2018-11-10] MEDS: ACETAMINOPHEN 325 MG TABLET PO PRN ×2 (09:07→20:28)
[2018-11-10] MEDS: CELECOXIB 200 MG CAPSULE PO SCH (09:11)
[2018-11-10] MEDS: SULFAMETHOXAZOLE/TRIMETHOPRIM 800-160 MG TABLET PO SCH ×2 (10:43→17:28)
[2018-11-10] MEDS: CHOLECALCIFEROL (D3) 400 UNIT TABLET PO SCH (10:43)
[2018-11-10] MEDS: FAMOTIDINE 20 MG TABLET PO SCH ×2 (10:43→22:13)
[2018-11-10] MEDS: LISINOPRIL 10 MG TABLET PO SCH (10:43)
[2018-11-10] MEDS: CARVEDILOL 12.5 MG TABLET PO SCH ×2 (10:43→22:13)
[2018-11-10] MEDS: ASPIRIN 81 MG TABLET, ENT COATED PO SCH (10:44)
[2018-11-10] MEDS: DOCUSATE SODIUM 100 MG CAPSULE PO SCH ×2 (10:44→17:34)
[2018-11-10] MEDS: NIFEDIPINE 30 MG TAB.ER.24 PO SCH (10:44)
[2018-11-10] MEDS: CALCIUM CARBONATE 250 MG/VITAMIN D3 125 UNIT TABLET PO SCH (10:44)
[2018-11-10] MEDS: ONDANSETRON HCL INJ/PF 4 MG/2 ML SDV IV PRN ×2 (12:20→21:08)
[2018-11-10 14:44] LABS: APPEARANCE,URINE SLIGHTLY-CLOUDY; BILIRUBIN,URINE NEGATIVE (NEGATIVE); COLOR,URINE YELLOW; GLUCOSE, URINE NEGATIVE (NEGATIVE); KETONES,URINE NEGATIVE (NEGATIVE); LEUKOCYTE ESTERASE,URINE NEGATIVE (NEGATIVE); NITRITE,URINE NEGATIVE (NEGATIVE); PROTEIN,URINE 30 mg/dL (NEGATIVE); URINE SPECIFIC GRAVITY 1.028; UROBILINOGEN,URINE NEGATIVE mg/dL (<2.0)
--- NOTE | 2018-11-10 15:06 | RADIOLOGY REPORT (SQ) ---
EXAM DESCRIPTION: CT ABD/PELVIS NO ORAL OR IV COMPLETED DATE/TIME: 11/10/2018 1:32 pm REASON FOR STUDY: ABD/bilateral flank pain, ?pyelonephritis N39.0 URINARY TRACT INFECTION, SITE NOT SPECIFIED COMPARISON: None. TECHNIQUE: CT scan of the abdomen and pelvis performed without intravenous or oral contrast. Images reviewed with lung, soft tissue, and bone windows. Reconstructed coronal and sagittal MPR images revi ewed. All images stored on PACS. All CT scanners at this facility use dose modulation, iterative reconstruction, and/or weight based d osing when appropriate to reduce radiation dose to as low as reasonably achievable (ALARA). [facility]: Dose Right [facility]: CareDose [facility]: Dose Right [facility]: Teradose 4D [facility]: USDS RADIATION DOSE: CT Rad equipment meets quality standard of care and radiation dose reduction techniq ues were employed. CTDIvol: 5.8 mGy. DLP: 292 mGy-cm.mGy. LIMITATIONS: None. FINDINGS: LOWER CHEST: No significant findings. No nodules or infiltrates. NON-CONTRASTED LIVER, SPLEEN, ADRENALS: Evaluation limited by lack of IV contrast. Mild adrenal full ness. No identified significant masses. PANCREAS: No masses. No peripancreatic inflammatory changes. GALLBLADDER: No identified stones by CT criteria. No inflammatory changes to suggest cholecystitis. RIGHT KIDNEY AND URETER: No suspicious masses. Assessment limited by lack of IV contrast. No signif icant calcifications. No hydronephrosis or hydroureter. LEFT KIDNEY AND URETER: No suspicious masses. Assessment limited by lack of IV contrast. No signifi cant calcifications. No hydronephrosis or hydroureter. AORTA AND RETROPERITONEUM: No aneurysm. No retroperitoneal masses or adenopathy. BOWEL AND PERITONEAL CAVITY: Scattered colonic diverticuli. No obvious masses or inflammatory change s. No free fluid. APPENDIX: Normal. PELVIS, BLADDER, AND ABDOMINAL WALL:No abnormal masses. Small calcified uterine fibroid. No free flu id. Bladder normal. BONES: No significant findings. Degenerative changes in the spine. OTHER: No other significant finding. IMPRESSION: MILD COLONIC DIVERTICULOSIS. NO CT FINDINGS OF ACUTE DIVERTICULITIS. NO OTHER SIGNIFIC ANT OR ACUTE PROCESS IN THE ABDOMEN OR PELVIS. COMMENT: Quality ID # [id number]: Final reports with documentation of one or more dose reduction techniques (e.g., Automated exposure control, adjustment of the mA and/or kV according to patient size, use of iterative reconstruction technique) TECHNICAL DOCUMENTATION: JOB ID: [id number] [employer]- All Rights Reserved Reading location - IP/workstation name: [email or web address]
--- NOTE | 2018-11-10 16:00 | PDOC PROGRESS REPORT ---
Subjective Progress Note for:: 11/10/18 Subjective:: The patient is a 83-year-old female with past medical history of hyperlipidemia and hypertension who was admitted 11/08/2018 for uncontrolled hypertension. The patient was seen on morning rounds with her family members present. She was found resting in bed comfortably on room air. The patient endorses bilateral flank pain that she relates to her recent diagnosis of UTI; was on Bactrim as an outpatient which was continued upon admission. She was afebrile again overnight with a temperature of 102.9. Otherwise, she has no complaints and denies headache, dizziness, blurred vision, chest pain, palpitations, dyspnea, orthopnea, cough, abdominal pain, nausea, v omiting, diarrhea and constipation. Overall, she states that she is feeling well and is "baffled" by her elevated temperatures. No concerns per nursing. Reason For Visit: FEVER,UTI,HYPERTENSIVE URGENCY Physical Exam Vital Signs: Temp Pulse Resp BP Pulse Ox 98.9 F 62 16 104/41 L 93 11/10/18 11:54 11/10/18 11:54 11/10/18 11:54 11/10/18 11:54 11/10/18 11:54 Intake & Output 11/09/18 11/10/18 11/11/18 06:59 06:59 06:59 Intake Total 630 300 100 Output Total 0 100 Balance 630 300 0 Weight 63 kg 60.9 kg General appearance: PRESENT: no acute distress, cooperative, well-developed, well-nourished Head exam: PRESENT: atraumatic, normocephalic Eye exam: PRESENT: conjunctiva pink, EOMI, PERRLA. ABSENT: scleral icterus Ear exam: PRESENT: normal external ear exam Mouth exam: PRESENT: moist, tongue midline Throat exam: ABSENT: post pharyngeal erythema Neck exam: ABSENT: carotid bruit, JVD, lymphadenopathy, thyromegaly Respiratory exam: PRESENT: clear to auscultation morales, symmetrical, unlabored. ABSENT: rales, rhonchi, wheezes Cardiovascular exam: PRESENT: RRR, +S1, +S2. ABSENT: diastolic murmur, rubs, systolic murmur Pulses: PRESENT: normal dorsalis pedis pul Vascular exam: PRESENT: normal capillary refill GI/Abdominal exam: PRESENT: normal bowel sounds, soft. ABSENT: distended, guarding, mass, organolmegaly, rebound, tenderness Rectal exam: PRESENT: deferred Extremities exam: PRESENT: full ROM. ABSENT: calf tenderness, clubbing, pedal edema Neurological exam: PRESENT: alert, awake, oriented to person, oriented to place, oriented to time, oriented to situation, CN II-XII grossly intact. ABSENT: motor sensory deficit Psychiatric exam: PRESENT: appropriate affect, normal mood. ABSENT: homicidal ideation, suicidal ideation Skin exam: PRESENT: dry, intact, warm. ABSENT: cyanosis, rash Results Laboratory Results: 11/10/18 08:23 11/10/18 08:23 11/09/18 11/10/18 11/10/18 18:25 08:23 08:23 WBC 4.2 RBC 4.25 Hgb 12.5 Hct 37.3 MCV 88 MCH 29.4 MCHC 33.5 RDW 14.2 H Plt Count 172 Sodium 137.7 Potassium 4.0 Chloride 103 Carbon Dioxide 27 Anion Gap 8 BUN 16 Creatinine 0.83 Est GFR ( Amer) > 60 Est GFR (Non-Af Amer) > 60 Glucose 94 Calcium 9.0 Total Bilirubin 0.4 AST 27 ALT 21 Alkaline Phosphatase 46 Total Protein 6.5 Albumin 3.7 Urine Color YELLOW Urine Appearance SLIGHTLY-CLOUDY Urine pH 5.0 Ur Specific [place] 1.024 Urine Protein NEGATIVE Urine Glucose (UA) NEGATIVE Urine Ketones NEGATIVE Urine Blood NEGATIVE Urine Nitrite NEGATIVE Ur Leukocyte Esterase NEGATIVE Urine WBC (Auto) 2 Urine RBC (Auto) 1 11/10/18 14:20 WBC RBC Hgb Hct MCV MCH MCHC RDW Plt Count Sodium Potassium Chloride Carbon Dioxide Anion Gap BUN Creatinine Est GFR ( Amer) Est GFR (Non-Af Amer) Glucose Calcium Total Bilirubin AST ALT Alkaline Phosphatase Total Protein Albumin Urine Color YELLOW Urine Appearance SLIGHTLY-CLOUDY Urine pH 5.0 Ur Specific [place] 1.028 Urine Protein 30 H Urine Glucose (UA) NEGATIVE Urine Ketones NEGATIVE Urine Blood NEGATIVE Urine Nitrite NEGATIVE Ur Leukocyte Esterase NEGATIVE Urine WBC (Auto) 2 Urine RBC (Auto) 1 11/08/18 11/08/18 11/08/18 04:08 06:10 06:10 Creatine Kinase 61 CK-MB (CK-2) 1.97 Troponin I 0.037 0.044 11/08/18 11/08/18 11/08/18 12:36 12:36 18:04 Creatine Kinase 54 54 CK-MB (CK-2) 1.41 Troponin I 0.019 11/08/18 18:04 Creatine Kinase CK-MB (CK-2) 1.22 Troponin I 0.014 Impressions: Chest X-Ray 11/09/18 00:00 IMPRESSION: Cannot exclude some small calcified hilar nodes bilaterally. No acute cardiopulmonary findings. Abdomen/Pelvis CT 11/10/18 00:00 IMPRESSION: MILD COLONIC DIVERTICULOSIS. NO CT FINDINGS OF ACUTE DIVERTICULITIS. NO OTHER SIGNIFICANT OR ACUTE PROCESS IN THE ABDOMEN OR PELVIS. Assessment & Plan - Diagnosis (1) Elevated troponin Is this a current diagnosis for this admission?: Yes Plan: Resolved; patient had indeterminately elevated troponins that peaked at 0.044 and have trended down to 0.014. Likely secondary to uncontrolled hypertension. EKG shows normal sinus rhythm. Lipid panel is acceptable. Patient denies chest discomfort, palpitations, dyspnea. Continue daily aspirin therapy. Low dose statin. (2) Fever Qualifiers: Fever type: unspecified Qualified Code(s): R50.9 - Fever, unspecified Is this a current diagnosis for this admission?: Yes Plan: The patient again had an elevated temperature overnight to 102.9. Her only complaint remains mild bilateral flank pain which she is related to her recent diagnosis of urinary tract infection. Blood culture (11/09/2018) are negative at 24 hours. Repeat blood cultures (11/10/18 obtain during fever spike) are pending. Urine culture has no growth at 1 day. WBCs remain normal. Chest x-ray is benign. Initial and repeat urinalysis are negative for UTI. CT ABD/Pelvis (without contrast) showed diverticulosis without diverticulitis; no other acute findings. Skin is intact; no rash. Per patient's family, she received a call saying that her urine culture obtain outpatient was positive for E. coli and sensitive to Bactrim. She continues on Bactrim DS 1 tab twice daily while admitted. If the patient again becomes febrile overnight; will need to escalate antibiotics. As blood cultures result; may need to adjust antibiotic therapy, consider MRI imaging for occult infections, or echocardiogram to rule out endocarditis. (3) HLD (hyperlipidemia) Qualifiers: Hyperlipidemia type: unspecified Qualified Code(s): E78.5 - Hyperlipidemia, unspecified Is this a current diagnosis for this admission?: Yes Plan: Cardiac diet. Low dose statin. (4) Hypertension, uncontrolled Is this a current diagnosis for this admission?: Yes Plan: Now with acceptable blood pressures. Cardiac diet. Lisinopril 40 mg daily. Procardia 60 mg daily. Carvedilol 12.5 mg twice daily. (5) UTI (urinary tract infection) Is this a current diagnosis for this admission?: Yes Plan: Outpatient urinalysis and culture resulted E. coli sensitive to Bactrim. The patient's previously prescribed Bactrim therapy was continued upon admission. Initial and repeat urinalysis this admission are negative for UTI. Urine culture has no growth at 1 day. Blood cultures have no growth at 24 hours; repeat blood cultures are pending. We will continue Bactrim at this time. Encourage p.o. fluids. - Time Time Spent with patient: 15-24 minutes Medications reviewed and adjusted accordingly: Yes Anticipated discharge: Home - Inpatient Certification Based on my medical assessment, after consideration of the patient's comorbidities, presenting symptoms, or acuity I expect that the services needed warrant INPATIENT care.: Yes I certify that my determination is in accordance with my understanding of Medicare's requirements for reasonable and necessary INPATIENT services [42 CFR 412.3e].: Yes Medical Necessity: Risk of Diagnosis Which Will Require Inpatient Eval/Care/Monitoring
[2018-11-10] MEDS: ATORVASTATIN CALCIUM 10 MG TABLET PO SCH (22:13)
[2018-11-11] MEDS: ACETAMINOPHEN 325 MG TABLET PO PRN ×2 (04:23→17:11)
[2018-11-11] MEDS: HEPARIN SOD (PORCINE) 5,000 UNIT/ML 1 ML SYRINGE SUBCUT SCH ×3 (05:29→21:29)
[2018-11-11 05:35] LABS: HEMATOCRIT 37.2 % (36.0-47.0); HEMOGLOBIN 12.5 g/dL (12.0-15.5); MEAN CORPUSCULAR HEMOGLOBIN 29.5 pg (27.0-33.4); MEAN CORPUSCULAR HGB CONC 33.7 g/dL (32.0-36.0); MEAN CORPUSCULAR VOLUME 88 fl (80-97); PLATELET COUNT 159 10^3/uL (150-450); RED BLOOD COUNT 4.25 10^6/uL (3.72-5.28); RED CELL DISTRIBUTION WIDTH 14.2 % (11.5-14.0); WHITE BLOOD COUNT 4.5 10^3/uL (4.0-10.5)
[2018-11-11] MEDS: CALCIUM CARBONATE 250 MG/VITAMIN D3 125 UNIT TABLET PO SCH (09:26)
[2018-11-11] MEDS: FAMOTIDINE 20 MG TABLET PO SCH ×2 (09:26→21:29)
[2018-11-11] MEDS: CARVEDILOL 12.5 MG TABLET PO SCH ×2 (09:26→21:29)
[2018-11-11] MEDS: ASPIRIN 81 MG TABLET, ENT COATED PO SCH (09:26)
[2018-11-11] MEDS: DOCUSATE SODIUM 100 MG CAPSULE PO SCH ×2 (09:26→17:07)
[2018-11-11] MEDS: NIFEDIPINE 30 MG TAB.ER.24 PO SCH (09:27)
[2018-11-11] MEDS: CHOLECALCIFEROL (D3) 400 UNIT TABLET PO SCH (09:27)
[2018-11-11] MEDS: LISINOPRIL 10 MG TABLET PO SCH (09:27)
[2018-11-11] MEDS: ONDANSETRON HCL INJ/PF 4 MG/2 ML SDV IV PRN (12:51)
--- NOTE | 2018-11-11 15:39 | PDOC PROGRESS REPORT ---
Subjective Progress Note for:: 11/11/18 Subjective:: The patient is a 83-year-old female with past medical history of hyperlipidemia and hypertension who was admitted 11/08/2018 for uncontrolled hypertension. The patient was seen on rounds with her family members present. She was found sitting up to the recliner comfortably on room air. The patient endorses fever and chills overnight; again with a temperature of 1 01.2. She reports that during the elevated temperature, she did have generalized malaise and fatigue, but otherwise denies new or worsening symptoms. She continues to have slight nausea, without emesis or abdominal pain. She is tolerating p.o. fluids and solids, though with a decreased appetite from her baseline. This is been present since prior to her admission. Discussed with patient and family members plan to discontinue antibiotic today; will observe to see if nausea and/or fever is related to medication. Patient is asked to report any new or developing symptoms. She denies headache, dizziness, blurred vision, chest pain, palpitations, dyspnea, orthopnea, cough, abdominal pain, nausea, vomiting, diarrhea and constipation. She has no other questions or concerns at this time. No concerns per nursing. Reason For Visit: FEVER,UTI,HYPERTENSIVE URGENCY Physical Exam Vital Signs: Temp Pulse Resp BP Pulse Ox 99.2 F 79 16 117/47 L 92 11/11/18 11:56 11/11/18 13:59 11/11/18 11:56 11/11/18 11:56 11/11/18 11:56 Intake & Output 11/10/18 11/11/18 11/12/18 06:59 06:59 06:59 Intake Total 300 340 Output Total 0 400 Balance 300 -60 Weight 60.9 kg 60.1 kg General appearance: PRESENT: no acute distress, cooperative, well-developed, well-nourished Head exam: PRESENT: atraumatic, normocephalic Eye exam: PRESENT: conjunctiva pink, EOMI, PERRLA. ABSENT: scleral icterus Ear exam: PRESENT: normal external ear exam Mouth exam: PRESENT: moist, tongue midline Neck exam: ABSENT: carotid bruit, JVD, lymphadenopathy, thyromegaly Respiratory exam: PRESENT: clear to auscultation morales, symmetrical, unlabored. ABSENT: rales, rhonchi, wheezes Cardiovascular exam: PRESENT: RRR, +S1, +S2. ABSENT: diastolic murmur, rubs, systolic murmur Pulses: PRESENT: normal dorsalis pedis pul Vascular exam: PRESENT: normal capillary refill GI/Abdominal exam: PRESENT: normal bowel sounds, soft. ABSENT: distended, guarding, mass, organolmegaly, rebound, tenderness Rectal exam: PRESENT: deferred Extremities exam: PRESENT: full ROM. ABSENT: calf tenderness, clubbing, pedal edema Neurological exam: PRESENT: alert, awake, oriented to person, oriented to place, oriented to time, oriented to situation, CN II-XII grossly intact. ABSENT: motor sensory deficit Psychiatric exam: PRESENT: appropriate affect, normal mood. ABSENT: homicidal ideation, suicidal ideation Skin exam: PRESENT: dry, intact, warm. ABSENT: cyanosis, rash Results Laboratory Results: 11/11/18 04:37 11/10/18 08:23 11/11/18 04:37 WBC 4.5 RBC 4.25 Hgb 12.5 Hct 37.2 MCV 88 MCH 29.5 MCHC 33.7 RDW 14.2 H Plt Count 159 11/09/18 18:25 Clean Catch Midstream Urine Culture - Final NO GROWTH 2 DAYS 11/08/18 11/08/18 11/08/18 04:08 06:10 06:10 Creatine Kinase 61 CK-MB (CK-2) 1.97 Troponin I 0.037 0.044 11/08/18 11/08/18 11/08/18 12:36 12:36 18:04 Creatine Kinase 54 54 CK-MB (CK-2) 1.41 Troponin I 0.019 11/08/18 18:04 Creatine Kinase CK-MB (CK-2) 1.22 Troponin I 0.014 Impressions: Chest X-Ray 11/09/18 00:00 IMPRESSION: Cannot exclude some small calcified hilar nodes bilaterally. No acute cardiopulmonary findings. Abdomen/Pelvis CT 11/10/18 00:00 IMPRESSION: MILD COLONIC DIVERTICULOSIS. NO CT FINDINGS OF ACUTE DIVERTICULITIS. NO OTHER SIGNIFICANT OR ACUTE PROCESS IN THE ABDOMEN OR PELVIS. Assessment & Plan - Diagnosis (1) Elevated troponin Is this a current diagnosis for this admission?: Yes Plan: Resolved; patient had indeterminately elevated troponins that peaked at 0.044 and have trended down to 0.014. Likely secondary to uncontrolled hypertension. EKG shows normal sinus rhythm. Lipid panel is acceptable. Patient denies chest discomfort, palpitations, dyspnea. Continue daily aspirin therapy. Low dose statin. (2) Fever Qualifiers: Fever type: unspecified Qualified Code(s): R50.9 - Fever, unspecified Is this a current diagnosis for this admission?: Yes Plan: The patient again had an elevated temperature overnight to 101.2. TMax last 48 hrs 102.9 Blood culture (11/09/2018) are negative at 48 hours. Repeat blood cultures (11/10/18 obtain during fever spike) are negative at 24 hours Urine culture has no growth at 2 days. WBCs remain normal. Chest x-ray is benign. Initial and repeat urinalysis are negative for UTI. CT ABD/Pelvis (without contrast) showed diverticulosis without diverticulitis; no other acute findings. Skin is intact; no rash. Per patient's family, she received a call saying that her urine culture obtain outpatient was positive for E. coli and sensitive to Bactrim. She continues on Bactrim DS 1 tab twice daily while admitted. She completed a 7-day course of antibiotics. Discussed the patient's course with Dr. Pandya today; agrees with discontinuing Bactrim in consideration of possible drug fever. We will continue to monitor overnight for increased fever or leukocytosis. (3) HLD (hyperlipidemia) Qualifiers: Hyperlipidemia type: unspecified Qualified Code(s): E78.5 - Hyperlipidemia, unspecified Is this a current diagnosis for this admission?: Yes Plan: Low dose statin. (4) Hypertension, uncontrolled Is this a current diagnosis for this admission?: Yes Plan: Now with acceptable blood pressures. Cardiac diet. Lisinopril 40 mg daily. Procardia 60 mg daily. Carvedilol 12.5 mg twice daily. (5) UTI (urinary tract infection) Is this a current diagnosis for this admission?: Yes Plan: Resolved. Outpatient urinalysis and culture resulted E. coli sensitive to Bactrim. The patient's previously prescribed Bactrim therapy was continued upon admission. Initial and repeat urinalysis this admission are negative for UTI. Urine culture has no growth at 2 days. Blood cultures have no growth at 48 hours; repeat blood cultures are also negative. Discontinue Bactrim; competed 7 day course. Encourage p.o. fluids. - Time Time Spent with patient: 15-24 minutes Medications reviewed and adjusted accordingly: Yes Anticipated discharge: Home Within: within 24 hours
[2018-11-11] MEDS ORDERED: NORMAL SALINE 500 ML IV ONE (20:45)
[2018-11-11] MEDS: ATORVASTATIN CALCIUM 10 MG TABLET PO SCH (21:29)
[2018-11-12] MEDS: ACETAMINOPHEN 325 MG TABLET PO PRN (02:15)
[2018-11-12] MEDS: HEPARIN SOD (PORCINE) 5,000 UNIT/ML 1 ML SYRINGE SUBCUT SCH ×3 (05:00→13:57)
[2018-11-12] MEDS: CARVEDILOL 12.5 MG TABLET PO SCH (09:48)
[2018-11-12] MEDS: DOCUSATE SODIUM 100 MG CAPSULE PO SCH (09:48)
[2018-11-12] MEDS: LISINOPRIL 10 MG TABLET PO SCH (09:48)
[2018-11-12] MEDS: ASPIRIN 81 MG TABLET, ENT COATED PO SCH (09:49)
[2018-11-12] MEDS: NIFEDIPINE 30 MG TAB.ER.24 PO SCH (09:49)
[2018-11-12] MEDS: FAMOTIDINE 20 MG TABLET PO SCH (09:49)
[2018-11-12] MEDS: CALCIUM CARBONATE 250 MG/VITAMIN D3 125 UNIT TABLET PO SCH (09:49)
[2018-11-12] MEDS: CHOLECALCIFEROL (D3) 400 UNIT TABLET PO SCH (09:51)
[2018-11-12] MEDS ORDERED: DIPHENHYDRAMINE HCL 25 MG CAPSULE PO PRN (09:58)
[2018-11-12] MEDS ORDERED: PREDNISONE 20 MG TABLET PO SCH (10:00)
[2018-11-12 14:14] VITALS: BP 160/68
--- NOTE | 2018-11-12 18:14 | PDOC DISCHARGE SUMMARY ---
General - Admit/Disc Date/PCP Admission Date/Primary Care Provider: 11/09/18 11:59 KAILEY NIEVES NP Discharge Date: 11/12/18 - Discharge Diagnosis (1) Elevated troponin Is this a current diagnosis for this admission?: Yes Summary: Resolved; patient had indeterminately elevated troponins that peaked at 0.044 and have trended down to 0.014. Likely secondary to uncontrolled hypertension. EKG shows normal sinus rhythm. Lipid panel is acceptable. Patient denies chest discomfort, palpitations, dyspnea. Recommend continued daily aspirin and statin therapy. Recommend following up with established inseam leveler as scheduled next week. (2) Fever Is this a current diagnosis for this admission?: Yes Summary: Multifactorial; possibly related to UTI. However, most likely to be a drug reaction to Bactrim as the patient's fever resolved upon discontinuing the medication. Blood culture (11/09/2018) are negative at 72 hours. Repeat blood cultures (11/10/18 obtained during fever spike) are negative at 48 hours Urine culture (final) has no growth. WBCs remain normal. Chest x-ray is benign. Initial and repeat urinalysis are negative for UTI. CT ABD/Pelvis (without contrast) showed diverticulosis without diverticulitis; no other acute findings. (3) HLD (hyperlipidemia) Is this a current diagnosis for this admission?: Yes Summary: Recommend continuing low-dose statin. (4) Hypertension, uncontrolled Is this a current diagnosis for this admission?: Yes Summary: Now with acceptable blood pressures. Recommend continued Cardiac diet. She is discharged on Lisinopril 40 mg daily, Procardia 60 mg daily, and Carvedilol 12.5 mg twice daily. Recommend following up with [facility] [employer] [facility] as scheduled. (5) UTI (urinary tract infection) Is this a current diagnosis for this admission?: Yes Summary: Resolved. Outpatient urinalysis and culture resulted E. coli sensitive to Bactrim. The patient's previously prescribed Bactrim therapy was continued upon admission. Initial and repeat urinalysis this admission are negative for UTI. Urine culture has no growth at 2 days. Blood cultures have no growth at 72 hours; repeat blood cultures are also negative. Completed 7 day course of Bactrim. (6) Allergy to antibiotic Is this a current diagnosis for this admission?: Yes Summary: Patient with high probability of drug fever related to Bactrim. On day of discharge, the patient was also noted to have developed a pruritic, erythematous, macular rash to her back and trunk. Rash abated with Benadryl and prednisone. Patient's chart is marked as having a Bactrim allergy. She is discharged with prescriptions for Pepcid, Benadryl, and a prednisone taper. - Additional Information Resuscitation Status: Full Code Discharge Diet: Cardiac Discharge Activity: Activity As Tolerated, Balance Activity w/Rest, Weigh Daily Prescriptions: Atorvastatin Calcium [Lipitor 10 mg Tablet] 10 mg PO QHS #30 tablet Carvedilol [Coreg 12.5 mg Tablet] 12.5 mg PO Q12 #60 tablet Diphenhydramine HCl [Benadryl 25 mg Capsule] 25 mg PO Q8HP PRN #30 capsule PRN Reason: Itching Famotidine [Pepcid 20 mg Tablet] 20 mg PO Q12 #60 tablet Prednisone [Sterapred] 5 mg PO ASDIR PRN #1 tab.ds.pk PRN Reason: Home Medications: Aspirin [Ecotrin 81 mg EC Tablet] 81 mg PO DAILY 11/08/18 Calcium Carbonate/Vitamin D3 [Calcium 600 + Vit D 400 Tablet] 1 tab PO DAILY 11/08/18 Cholecalciferol (Vitamin D3) [Vitamin D3 400 Unit Tablet] 400 unit PO DAILY 11/08/18 Diclofenac Sodium [Voltaren] 4 gm TOP DAILYP PRN 11/08/18 Lisinopril [Prinivil 40 mg Tablet] 40 mg PO DAILY 11/08/18 Nifedipine [Nifedipine ER] 60 mg PO DAILY 11/08/18 Acetaminophen [Tylenol 325 mg Tablet] 650 mg PO Q4HP PRN tablet 11/12/18 Atorvastatin Calcium [Lipitor 10 mg Tablet] 10 mg PO QHS #30 tablet 11/12/18 Carvedilol [Coreg 12.5 mg Tablet] 12.5 mg PO Q12 #60 tablet 11/12/18 Diphenhydramine HCl [Benadryl 25 mg Capsule] 25 mg PO Q8HP PRN #30 capsule Docusate Sodium [Colace 100 mg Capsule] 100 mg PO BID capsule 11/12/18 Famotidine [Pepcid 20 mg Tablet] 20 mg PO Q12 #60 tablet 11/12/18 Prednisone [Sterapred] 5 mg PO ASDIR PRN #1 tab.ds.pk 11/12/18 History of Present Illness History of Present Illness: Per H&P by Dr. Terrazas: TREVOR NIEVES is a 83 year old female who presented to the emergency room with a 3-week history of episodic hypertension. She admits that on numerous occasions over the last 3 weeks her blood pressure has become extremely high (198/96) at home when she measures it or when her daughter measures it. The elevated blood pressures are generally accompanied by pa lpitations, flushing and tremor, lasting for 30-60 minutes and then resolving spontaneously. She admits several prior similar episodes and has not identified any aggravating or ameliorating factors for her hypertension, despite the fact that she takes 3 antihypertensive agents on a regular basis. In the emergency room she was found to have a mildly elevated serum troponin of 0.037 and poorly controlled hypertension. With these findings the patient was placed in observation status at the request of the emergency room physician for better control of her hypertension and and further delineation of her elevated serum troponin prior to discharge. Physical Exam Vital Signs: Temp Pulse Resp BP Pulse Ox 99.4 F 67 16 160/68 H 94 11/12/18 14:07 11/12/18 14:07 11/12/18 14:07 11/12/18 14:07 11/12/18 14:07 Intake & Output 11/11/18 11/12/18 11/13/18 06:59 06:59 06:59 Intake Total 340 905 Output Total 400 400 Balance -60 505 Weight 60.1 kg 60.3 kg General appearance: PRESENT: no acute distress, well-developed, well-nourished Head exam: PRESENT: atraumatic, normocephalic Eye exam: PRESENT: conjunctiva pink, EOMI, PERRLA. ABSENT: scleral icterus Ear exam: PRESENT: normal external ear exam Mouth exam: PRESENT: moist, tongue midline Neck exam: ABSENT: carotid bruit, JVD, lymphadenopathy, thyromegaly Respiratory exam: PRESENT: clear to auscultation morales. ABSENT: rales, rhonchi, wheezes Cardiovascular exam: PRESENT: RRR. ABSENT: diastolic murmur, rubs, systolic murmur Pulses: PRESENT: normal dorsalis pedis pul Vascular exam: PRESENT: normal capillary refill GI/Abdominal exam: PRESENT: normal bowel sounds, soft. ABSENT: distended, guarding, mass, organolmegaly, rebound, tenderness Rectal exam: PRESENT: deferred Extremities exam: PRESENT: full ROM. ABSENT: calf tenderness, clubbing, pedal edema Neurological exam: PRESENT: alert, awake, oriented to person, oriented to place, oriented to time, oriented to situation, CN II-XII grossly intact. ABSENT: motor sensory deficit Psychiatric exam: PRESENT: appropriate affect, normal mood. ABSENT: homicidal ideation, suicidal ideation Skin exam: PRESENT: dry, intact, rash - scattered erythematous macules; pruritic, especially to back and trunk, warm. ABSENT: cyanosis Results Laboratory Results: 11/11/18 04:37 11/10/18 08:23 11/08/18 11/08/18 11/08/18 04:08 06:10 06:10 Creatine Kinase 61 CK-MB (CK-2) 1.97 Troponin I 0.037 0.044 11/08/18 11/08/18 11/08/18 12:36 12:36 18:04 Creatine Kinase 54 54 CK-MB (CK-2) 1.41 Troponin I 0.019 11/08/18 18:04 Creatine Kinase CK-MB (CK-2) 1.22 Troponin I 0.014 Impressions: Chest X-Ray 11/09/18 00:00 IMPRESSION: Cannot exclude some small calcified hilar nodes bilaterally. No acute cardiopulmonary findings. Abdomen/Pelvis CT 11/10/18 00:00 IMPRESSION: MILD COLONIC DIVERTICULOSIS. NO CT FINDINGS OF ACUTE DIVERTICULIT IS. NO OTHER SIGNIFICANT OR ACUTE PROCESS IN THE ABDOMEN OR PELVIS. Qualifiers - * PATIENT BEING DISCHARGED WITH ANY OF THE FOLLOWING DIAGNOSIS: No Plan Discharge Plan: Discharge to home in the care of family members. Follow-up with primary care provider as scheduled next week. Follow-up with established inseam leveler, Dr. Bradford, as scheduled next week. Return to the emergency department as needed for concerning symptoms. Time Spent: Less than 30 Minutes
== END 2018-11-12 16:28 | disposition home or self-care (01) | DRG 305 ==
LOC: ER 02:17 → EH 05:09 → 3N 07:07 → OBSVTOIN 11-09 11:59 → 3N 11-11 21:04
PROVIDERS: ADMIT Emergency Medicine; ATTEND Emergency Medicine
DX: I16.0 Hypertensive urgency (principal); N39.0 Urinary tract infection, site not specified; R74.8 Abnormal levels of other serum enzymes; E78.5 Hyperlipidemia, unspecified; K57.90 Diverticulosis of intestine, part unspecified, without perforation or abscess without bleeding; B96.20 Unspecified Escherichia coli [E. coli] as the cause of diseases classified elsewhere; T37.0X5A Adverse effect of sulfonamides, initial encounter; R50.2 Drug induced fever; L27.1 Localized skin eruption due to drugs and medicaments taken internally; Z79.899 Other long term (current) drug therapy
CPT/HCPCS: 36415; 71046; 74176; 80048; 80053; 80061; 81001; 82550; 82553; 84484; 85025; 85027; 87040; 87086; 87088; 93005; 93010; 99284; G0378; J1644; J2405; J3490; J7040; J7512

== ENCOUNTER 2019-03-28 21:58 | Emergency (ER) | payer MEDICARE, MEDICAID ==
[2019-03-28 22:56] VITALS: BP 210/80
[2019-03-29 01:23] LABS: ABSOLUTE BASOPHILS # (AUTO) 0.1 10^3/uL (0.0-0.2); ABSOLUTE EOSINOPHILS # (AUTO) 0.3 10^3/uL (0.0-0.6); ABSOLUTE LYMPHOCYTES (AUTO) 2.1 10^3/uL (0.5-4.7); ABSOLUTE MONOCYTES (AUTO) 0.5 10^3/uL (0.1-1.4); ABSOLUTE NEUT (AUTO) 3.6 10^3/uL (1.7-8.2); EOSINOPHILS % (AUTO) 4.1 % (0-6); HEMATOCRIT 40.5 % (36.0-47.0); HEMOGLOBIN 13.3 g/dL (12.0-15.5); LYMPHOCYTES % (AUTO) 32.3 % (13-45); MEAN CORPUSCULAR HEMOGLOBIN 29.1 pg (27.0-33.4); MEAN CORPUSCULAR HGB CONC 32.9 g/dL (32.0-36.0); MEAN CORPUSCULAR VOLUME 88 fl (80-97); MONOCYTES % (AUTO) 7.8 % (3-13); PLATELET COUNT 263 10^3/uL (150-450); RED BLOOD COUNT 4.58 10^6/uL (3.72-5.28); RED CELL DISTRIBUTION WIDTH 14.2 % (11.5-14.0); SEGMENTED NEUTROPHILS % (AUTO) 54.8 % (42-78); TOTAL CELLS COUNTED % (AUTO) 100 %; WHITE BLOOD COUNT 6.6 10^3/uL (4.0-10.5)
[2019-03-29 01:33] LABS: APPEARANCE,URINE SLIGHTLY-CLOUDY; BILIRUBIN,URINE NEGATIVE (NEGATIVE); COLOR,URINE YELLOW; GLUCOSE, URINE NEGATIVE (NEGATIVE); KETONES,URINE NEGATIVE (NEGATIVE); LEUKOCYTE ESTERASE,URINE LARGE (NEGATIVE); NITRITE,URINE POSITIVE (NEGATIVE); PROTEIN,URINE NEGATIVE (NEGATIVE); URINE SPECIFIC GRAVITY 1.009; UROBILINOGEN,URINE NEGATIVE mg/dL (<2.0)
[2019-03-29 01:58] LABS: ALANINE AMINOTRANSFERASE 17 U/L (9-52); ALBUMIN 4.5 g/dL (3.5-5.0); ALKALINE PHOSPHATASE 48 U/L (38-126); ANION GAP 13 (5-19); ASPARTATE AMINO TRANSFERASE 22 U/L (14-36); BILIRUBIN,DIRECT 0.2 mg/dL (0.0-0.4); BILIRUBIN,TOTAL 0.6 mg/dL (0.2-1.3); BLOOD UREA NITROGEN 15 mg/dL (7-20); CALCIUM 9.8 mg/dL (8.4-10.2); CARBON DIOXIDE 29 mmol/L (22-30); CHLORIDE 102 mmol/L (98-107); POTASSIUM 3.5 mmol/L (3.6-5.0); SODIUM 143.8 mmol/L (137-145); TOTAL PROTEIN 7.8 g/dL (6.3-8.2)
[2019-03-29 02:02] LABS: GLUCOSE 67 mg/dL (75-110)
--- NOTE | 2019-03-29 05:32 | RADIOLOGY REPORT (SQ) ---
EXAM DESCRIPTION: US TRANSVAGINAL COMPLETED DATE/TME: 03/29/2019 01:36 CLINICAL HISTORY: 83 years Female, vaginal bleeding Comparison: None. Technique: LIMITATIONS: None. FINDINGS: 7 x 4 x 5 cm uterus with diffuse mural calcifications which could indicate vascular calcification and or diffuse leiomyomatous disease. Endometrial stripe is obscured. The ovaries are not directly visualized. No significant free fluid. IMPRESSION: Obscured endometrial stripe. Differential etiologies include neoplasm. Recommend VAULT WORKER consultation.
--- NOTE | 2019-03-29 06:11 | ER Document Report ---
HPI - HPI Time Seen by Provider: 03/29/19 01:07 Pain Level: 0 - REPRODUCTIVE Reproductive: DENIES: : Past Medical History - Social History Smoking Status: Never Smoker Frequency of alcohol use: None Drug Abuse: None Family History: Hypertension Patient has suicidal ideation: No Patient has homicidal ideation: No - Past Medical History Cardiac Medical History: Reports: Hx Hypercholesterolemia, Hx Hypertension Denies: Hx Coronary Artery Disease, Hx DVT, Hx Heart Attack, Hx Pulmonary Embolism Pulmonary Medical History: Denies: Hx Asthma, Hx COPD, Hx Respiratory Failure Neurological Medical History: Denies: Hx Seizures Endocrine Medical History: Denies: Hx Diabetes Mellitus Type 1, Hx Diabetes Mellitus Type 2, Hx Hyperthyroidism, Hx Hypothyroidism Renal/ Medical History: Denies: Hx Peritoneal Dialysis GI Medical History: Denies: Hx Cirrhosis, Hx Hepatitis Musculoskeletal Medical History: Denies Hx Fibromyalgia, Denies Hx Gout Skin Medical History: Denies Hx Eczema, Denies Hx Psoriasis Psychiatric Medical History: Denies: Hx Depression Infectious Medical History: Denies: Hx Hepatitis - Immunizations Hx Diphtheria, Pertussis, Tetanus Vaccination: Yes Vertical Provider Document - INFECTION CONTROL TRAVEL OUTSIDE OF THE [place] IN LAST 30 DAYS: No Course - Vital Signs Vital signs: Temp Pulse Resp BP Pulse Ox 97.7 F 63 18 210/80 H 95 03/28/19 22:53 03/28/19 22:53 03/28/19 22:53 03/28/19 22:53 03/28/19 22:53 - Laboratory Result Diagrams: 03/29/19 00:40 03/29/19 00:40 Laboratory results interpreted by me: 03/29/19 03/29/19 03/29/19 00:40 00:40 00:40 RDW 14.2 H Potassium 3.5 L Glucose 67 L Urine Nitrite POSITIVE H Ur Leukocyte Esterase LARGE H Discharge - Discharge Referrals: KAILEY NIEVES, [employer] [Primary Care Provider] - Follow up as needed
--- NOTE | 2019-03-29 06:23 | ER Document Report ---
ED General - General Chief Complaint: Vaginal Bleeding Stated Complaint: VAGINAL BLEEDING Time Seen by Provider: 03/29/19 01:07 Primary Care Provider: [facility] [Provider Group] - Follow up in 3-5 days KAILEY NIEVES NP [Primary Care Provider] - Follow up in 3-5 days Notes: Patient is a 83-year-old female who presents the emergency department with a chief complaint of vaginal bleeding. She has had her vaginal bleeding for the past week and a half. She states that she has little bits of blood at that time. She denies any dizziness, vertigo, weakness or other symptoms. Patient has a past medical history of hypertension, vitamin D deficiency, and uterine prolapse. Patient denies being sexually active. She has been in menopause "for a long time." Patient's blood pressure is 210/80 in triage. She denies any diplopia, headache, weakness, or any other symptoms at this time. She currently takes nifedipine, Coreg, aspirin, calcium, and vitamin D3. TRAVEL OUTSIDE OF THE [place] IN LAST 30 DAYS: No - Related Data Allergies/Adverse Reactions: Penicillins Allergy (Verified 11/08/18 07:11) sulfamethoxazole [From Bactrim] Allergy (Verified 11/12/18 09:59) trimethoprim [From Bactrim] Allergy (Verified 11/12/18 09:59) Past Medical History - Social History Smoking Status: Never Smoker Frequency of alcohol use: None Drug Abuse: None Family History: Hypertension Patient has suicidal ideation: No Patient has homicidal ideation: No - Past Medical History Cardiac Medical History: Reports: Hx Hypercholesterolemia, Hx Hypertension Denies: Hx Coronary Artery Disease, Hx DVT, Hx Heart Attack, Hx Pulmonary Embolism Pulmonary Medical History: Denies: Hx Asthma, Hx COPD, Hx Respiratory Failure Neurological Medical History: Denies: Hx Seizures Endocrine Medical History: Denies: Hx Diabetes Mellitus Type 1, Hx Diabetes Mellitus Type 2, Hx Hyperthyroidism, Hx Hypothyroidism Renal/ Medical History: Denies: Hx Peritoneal Dialysis GI Medical History: Denies: Hx Cirrhosis, Hx Hepatitis Musculoskeletal Medical History: Denies Hx Fibromyalgia, Denies Hx Gout Skin Medical History: Denies Hx Eczema, Denies Hx Psoriasis Psychiatric Medical History: Denies: Hx Depression Infectious Medical History: Denies: Hx Hepatitis - Immunizations Hx Diphtheria, Pertussis, Tetanus Vaccination: Yes Review of Systems - Review of Systems Notes: REVIEW OF SYSTEMS: CONSTITUTIONAL : Denies recent illness. Denies recent unintentional weight loss. Denies fever, chills, or sweats. EENT: Denies eye, ear, throat, or mouth pain, discharge, or symptoms. Denies n [place] or sinus congestion. CARDIOVASCULAR: Denies chest pain. RESPIRATORY: Denies shortness of breath, cough, congestion, difficulty breathing, or wheezing. GASTROINTESTINAL: Denies nausea, vomiting, and diarrhea. Denies abdominal pain. Denies constipation. Last BM: GENITOURINARY: Denies difficulty urinating, burning, blood in urine, urgency or frequency. FEMALE GENITOURINARY: See HPI MUSCULOSKELETAL: Denies neck and back pain. Denies joint pain or swelling. SKIN: Denies rash, itchiness, or lesions HEMATOLOGIC : Denies easy bruising or bleeding. LYMPHATIC: Denies swollen, painful, enlarged glands. NEUROLOGICAL: Denies no numbness or tingling denies weakness. Denies headache. Denies altered mental status. Denies alteration in speech. PSYCHIATRIC: Denies stress, anxiety, alteration in sleep patterns, or depression. All other systems reviewed and negative. Physical Exam - Vital signs Vitals: Temp Pulse Resp BP Pulse Ox 97.7 F 63 18 210/80 H 95 03/28/19 22:53 03/28/19 22:53 03/28/19 22:53 03/28/19 22:53 03/28/19 22:53 - Notes Notes: PHYSICAL EXAMINATION: GENERAL: Appears well, healthy, well-nourished, no acute distress. HEAD: Normocephalic, atraumatic. EYES: PERRL, conjunctiva normal, all extraocular movements intact, sclera nonicteric ENT: Moist mucous membranes. NECK: Supple, no noticeable swelling, redness, rash. Normal range of motion. LUNGS: Equal breath sounds bilaterally and clear to auscultation. No wheezes rales or rhonchi. CARDIOVASCULAR: S1-S2, regular rate, regular rhythm. Radial pulses 2+, normal. ABDOMEN: Normoactive bowel sounds. Soft, nontender, no guarding, no rebound tenderness, and no masses palpated. EXTREMITIES: Normal strength and range of motion, no pitting or edema. No cyanosis. NEUROLOGICAL: Moves all extremities upon command. Strength 5/5 in all extremities. PSYCH: Normal mood, normal affect. SKIN: Warm, dry. No rash, lesions, ulcerations noted. Normal skin turgor. Course - Re-evaluation Re-evalutation: 03/29/19 06:00 Patient's trans-vaginal ultrasound shows an obscured endometrial stripe. I have discussed these findings with the patient. She will follow-up with CLIENT ARCHITECT in regards to this issue. Patient's blood pressure was 210/80 in triage. I rechecked her blood pressure and it was 215/96 on the right side and 236/93 on the left side. She states that she took her blood pressure medication last night as prescribed. Patient denies any symptoms. Denies headache, blurred vision, diplopia, weakness, or any other symptoms at this time. I have advised her to take her blood pressure medication as prescribed this morning and follow- up with her primary care provider for blood pressure management. She is in agreement with this plan. Verbal discharge instructions were given to the p atient. They verbalized understanding. They are stable for discharge. - Vital Signs Vital signs: Temp Pulse Resp BP Pulse Ox 97.7 F 66 18 210/80 H 99 03/28/19 22:53 03/29/19 07:08 03/28/19 22:53 03/28/19 22:53 03/29/19 07:08 - Laboratory Result Diagrams: 03/29/19 00:40 03/29/19 00:40 Laboratory results interpreted by me: 03/29/19 03/29/19 03/29/19 00:40 00:40 00:40 RDW 14.2 H Potassium 3.5 L Glucose 67 L Urine Nitrite POSITIVE H Ur Leukocyte Esterase LARGE H Discharge - Discharge Clinical Impression: Vaginal bleeding UTI (urinary tract infection) Qualifiers: Urinary tract infection type: site unspecified Hematuria presence: without hematuria Qualified Code(s): N39.0 - Urinary tract infection, site not specified Hypertension Qualifiers: Hypertension type: essential hypertension Qualified Code(s): I10 - Essential (primary) hypertension Condition: Stable Disposition: HOME, SELF-CARE Instructions: Cephalexin ([facility]), Urinary Tract Infection ([facility]) Additional Instructions: You are seen today in the emergency department for vaginal bleeding. Your ultrasound showed you had thickening of your endometrial wall. Please follow-up with CLIENT ARCHITECT in regards to this. You also have a urinary tract infection. You are being started on antibiotics. Please take all your antibiotics as prescribed. Your urine was sent for culture. Your blood pressure was also very elevated today. Please make sure you take your blood pressure medication as prescribed. Please follow-up with your primary care provider in regards to this visit. If you develop a headache, double vision, confusion, weakness, facial droop, blurriness, or have any symptoms that are worrisome to you, please return to the emergency department. Prescriptions: Cephalexin [Keflex] 500 mg PO BID #14 capsule Forms: Elevated Blood Pressure Referrals: KAILEY NIEVES NP [Primary Care Provider] - Follow up in 3-5 days [facility] [Provider Group] - Follow up in 3-5 days
[2019-03-29] MEDS ORDERED: HYDRALAZINE HCL 10 MG TABLET PO ONE (06:39)
== END 2019-03-29 07:08 | disposition home or self-care (01) ==
LOC: ER 21:58
DX: N93.9 Abnormal uterine and vaginal bleeding, unspecified (principal); N39.0 Urinary tract infection, site not specified; I10 Essential (primary) hypertension; E55.9 Vitamin D deficiency, unspecified; Z79.899 Other long term (current) drug therapy; Z79.82 Long term (current) use of aspirin; Z88.0 Allergy status to penicillin; Z88.1 Allergy status to other antibiotic agents
CPT/HCPCS: 99284; 36415; 87086; 85025; 87088; 80053; 81001; 87186; 76830; 93976; A9270; J3490